=== PATIENT | male | born 1960 | race Caucasian/White ===

== ENCOUNTER 2021-07-08 07:41 | Outpatient (CLI) | payer MEDICARE, BC, SELFPAY ==
--- NOTE | 2021-07-08 18:43 | ONC CON_ITS ---
Dr. Hanks New Patient Note Patient: Jose Daniel Abad Unit #: [id number]: 1960 Dicatated By: Hawk Hanks M.D.Date of Visit: Jul 08, 2021 Onc MED New Patient/Consult Referring Physician: Dr. LESLIE MCDONALD M.D. Chief Complaint: Lymphocytosis. History of Present Illness: This is a 60-year-old man with lymphocytosis and suspected chronic lymphocytic leukemia. He has multiple medical illnesses including hypertension, hyperlipidemia, type 2 diabetes, and coronary artery disease. He has degenerative disease of the spine, he has had 3 back surgeries. 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 On his routine schedule laboratory studies in April 2021 he was noted to have a slightly elevated total bilirubin. His further laboratory evaluation on 06/17/2021 included a CBC which showed an elevated total white count of 16,300 with the differential showing 24% neutrophils, 66% lymphocytes, 5% monocytes, and 2% eosinophils. The absolute lymphocyte count was elevated at 10,872. His hemoglobin was normal at 16.3 g with hematocrit 46.7% and his platelet count was normal at 200,000. Similar findings were noted on a repeat CBC 3 days later. His blood smear reported lymphocytes with smudge cells and occasional atypical forms present, consistent with lymphoproliferative process. He complains that he feels tired all the time, that has been going on for least several years. He thinks it may have worsened somewhat in the past year. He has been able to continue his normal activities, though they are somewhat restricted. His ECOG score is 1. He has good appetite. He has had a recent weight loss of 7 to 10 pounds as result of dietary changes for his diabetes. He does not have fever or night sweats. He has chronic sinus drainage and he reports having dry mouth and throat. He has some shortness of breath with his asthma, but his breathing is generally okay. Recently he has had a little bit of cough. He says the cold air makes his chest hurt. He is scheduled to have a stress test in August. He has no GI complaints other than occasional heartburn. He has frequent urination. He has a lot of back pain, which is chronic. He has had gout in his right hand. He very seldom has headache. Occasionally has lightheadedness. He was having numbness in his right leg, but that has improved. He has no other focal neurologic symptoms. Recently has been getting treatment for an infected toenail, but that also is improving. Past Medical History: His medical history consists of asthma, coronary artery disease, degenerative disease of the spine, gout, history of Lyme disease, history of seminoma of the left testicle, hyperlipidemia, hypertension, nephrolithiasis, and type II diabetes. Past Surgical History: His surgical/procedural history includes cholecystectomy, lumbar spine surgery in 2019, coronary artery bypass in 2008, lumbar laminectomy/fusion in 2004, L4/5 discectomy in 2002, left orchiectomy in 2000, and lithotripsy in 1995. Medications: Albuterol Sulfate HFA 2 Puff(s) (of 108 (90 base) mcg/act) Aerosol, solution Inhalation q 6 hours PRN, Allopurinol 1 Tablet (of 300 mg) Oral daily, amLODIPine Besylate 1 Tablet (of 5 mg) Oral daily, Atorvastatin Calcium 1 Tablet (of 40 mg) Oral daily, Clopidogrel Bisulfate 1 Tablet (of 75 mg) Oral daily, hydroCHLOROthiazide 1 Tablet (of 12.5 mg) Oral daily, Insulin Aspart Prot & Aspart 35 Unit(s) (of (70-30) 100 Units/mL) Subcutaneous b.i.d., Losartan Potassium 1 Tablet (of 12.5 mg) Oral daily, metFORMIN HCl 2 Tablet (of 500 mg) Tablet SR 24 HR Oral b.i.d., Metoprolol Tartrate 1 Tablet (of 50 mg) Oral b.i.d., Nitroglycerin Tablet, sublingual Sublingual PRN, Potassium Chloride ER 1 Capsule (of 10 meq) Capsule, controlled release Oral daily Allergies: Adhesives, Bee Venom, Dulaglutide, HYDROcodone-Acetaminophen, Latex, Semaglutide, and Vicodin. Social History: Mr. Abad is . He is disabled. He is a non-smoker. He does not drink alcohol. 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 Family History: Father with pulmonary fibrosis at age 82. He also had heart disease. Mother is still living at age 87. She has diabetes. One brother has diabetes and 2 brothers have heart disease. His paternal grandfather had lung cancer and a nephew on his father's side had colon cancer. Review Of Symptoms: Constitutional - He complains that he is tired all the time, but that has been going on for least several years. He thinks it may have worsened somewhat during the past year. He has good appetite. He has had a 7 pound weight loss due to dietary changes for the diabetes. He does not have fever or night sweats, Eyes - He has had some decline in visual acuity, ENMT - He has hearing loss. No tinnitus. He always has sinus symptoms. He has dry mouth. He has not had sore throat or difficulty swallowing, Hematologic/Lymphatic - He does not have much bruising and he has no other bleeding, Respiratory - He has some shortness of breath with his asthma, but his breathing is okay. Recently he has had cough associated with a tickle in his throat. No pleuritic pain or hemoptysis, Cardiovascular - He has chest pain with exposure to cold air. He apparently has had a regular heart rate. He is scheduled to have a stress test in August, Gastrointestinal - No nausea or vomiting. He occasionally has heartburn. No diarrhea or constipation. No blood in the stool or black stools, Genitourinary (M) - No dysuria or hematuria. He has urinary frequency. No urgency or incontinence, Musculoskeletal - He says he has a lot of back pain. He has had gout in his right hand, Integumentary - He has a history of skin cancer, Neurologic - He very seldom has headache. He occasionally has dizziness. He was having numbness in his right leg, but that has improved. No other focal neurologic symptoms, Psychiatric - No anxiety or depression. He sometimes has difficulty sleeping. Vital Signs: Performed on Jul 08, 2021 15:40: 6, 0, 0.00, 0.00 sq.m, 96 %, 73 /min, 18 /min, 133/75 mm(hg), 98.0 F (LOW), and 207.6 lbs (HIGH). Physical Examination: Constitutional - He looks pretty good generally, Eyes - Sclerae nonicteric. Conjunctivae clear, ENMT - No lesions noted in the oral cavity, Neck - No mass or thyromegaly, Hematologic/Lymphatic - There are small cervical and clavicular nodes palpable bilaterally. There is no axillary adenopathy noted, Respiratory - Lungs are clear with good air movement bilaterally, Cardiovascular - Heart rhythm is regular. There is no murmur, gallop, or rub noted, Abdomen - Soft and non-tender. Liver and spleen are not enlarged. There is no abdominal mass or ascites noted and there is no inguinal adenopathy noted, Back/Spine - No spine or CVA tenderness noted, Extremities - No edema. Pedal pulses are palpable bilaterally, Integumentary - No rashes. No suspicious skin lesions noted, Neurologic - No focal neurologic deficits noted. Problem List: 1. Mild lymphocytosis consistent with chronic lymphocytic leukemia. By clinical evaluation, he appears to have early stage disease (Keyes stage I). 2. Hypertension. 3. Hyperlipidemia. 4. Type 2 diabetes. 5. Coronary artery disease. 6. Mild asthma. 7. Degenerative disease of the spine with chronic back pain. 8. Gout. 9. Nephrolithiasis. 10. History of Lyme disease. 11. History of seminoma of the left testicle with no recurrence following orchiectomy and adjuvant radiation. Problems Addressed with this Encounter and Plan: Patient with mild lymphocytosis consistent with chronic lymphocytic leukemia. He appears to have Keyes stage I disease, as he does have some associated cervical/clavicular adenopathy. The laboratory findings and clinical implications were reviewed with the patient and his . Given the CBC results and the findings on the blood smear, he almost certainly has chronic lymphocytic leukemia. He appears to have early stage disease, though there is some associated cervical/clavicular adenopathy. We discussed the fact that the leukemia is not curable, but it is treatable. It is generally managed with observation in earlier stages with the main indications for treatment being anemia or thrombocytopenia. Bulky/symptomatic lymphadenopathy can also be an indication for treatment. At this point he will be scheduled for whole blood flow cytometry to confirm the diagnosis. I am also going to go ahead and request a CLL prognostic profile. In addition, I am going to schedule him for staging CT scans of the chest, abdomen, and pelvis, mainly to make sure that he does not have jose hepatis lymphadenopathy contributing to the elevated bilirubin. However, as long as his disease is early-stage and not overtly symptomatic, he will be followed on expectant management. Signed By: Hawk Hanks M.D. <<Signature on File>>
== END 2021-07-08 07:42 | disposition home or self-care (01) ==
PROVIDERS: PCP Family Medicine; Visit Provider Internal Medicine Medical Oncology
DX: D72.820 Lymphocytosis (symptomatic) (principal); I10 Essential (primary) hypertension; E78.5 Hyperlipidemia, unspecified; E11.59 Type 2 diabetes mellitus with other circulatory complications; I25.10 Atherosclerotic heart disease of native coronary artery without angina pectoris; J45.20 Mild intermittent asthma, uncomplicated; G31.89 Other specified degenerative diseases of nervous system; M10.9 Gout, unspecified; N20.0 Calculus of kidney; Z86.19 Personal history of other infectious and parasitic diseases; Z85.47 Personal history of malignant neoplasm of testis; Z79.899 Other long term (current) drug therapy; Z92.3 Personal history of irradiation
CPT/HCPCS: 99205

== ENCOUNTER 2021-08-18 06:51 | Outpatient (CLI) | payer MEDICARE, BC, SELFPAY ==
--- NOTE | 2021-08-18 07:17 | ECG_ITS ---
[facility] Test Date: 2021-08-18 Pat Name: Jose Daniel Abad Department: Room: Gender: Male Software Applications Specialist: Candida Bailey : 1960 Requested By: Fanny Velarde Order Number: [id number] MD: Fanny Velarde M.D. Interpretive Statements NAME OF STUDY: EXERCISE SESTAMIBI STRESS TEST INDICATION: ashd, PROCEDURE: The baseline electrocardiogram showed incomplete right bundle branch block. Diffuse nonspecific ST-T changes. At the baseline, the patient's blood pressure was 134/99 mm Hg with a heart rate of 79. The patient exercised for 9 minutes on a 153 on a standard Damian protocol. Patient attained a maximum heart rate of 153 beats per minute(96% of the maximum predicted heart rate) with a blood pressure at the peak exercise of 196/89 mm Hg. The EKG at the peak exercise revealed some nonspecific ST changes. Patient did not have any chest pain or any significant arrhythmis with the exercise Sestamibi was injected 1 minute prior to the peak exercise During the recovery phase, there were no new changes. Blood pressure at the end of the recovery phase was 166/96 mm Hg with a heart rate of 96 per minute. CONCLUSION: 1. Nonspecific EKG changes with the [treadmill exercise 2. No exercise-induced chest pain or cardiac arrhythmia 3. Good exercise tolerance, attained a maximum of 10.2 METs 4. Sestamibi/Sestamibi perfusion results pending; see separate report. Electronically Signed On 08-18-2021 19:08:33 CLIPPER MACHINE by Fanny Velarde M.D. [id number]
[2021-08-18 07:18] VITALS: BMI 29.2
--- NOTE | 2021-08-18 07:18 | NMCV_ITS ---
NM glenn perf SPECT r/s* [id number] Jose Daniel Abad Age: 61 Gender: M : 1960 Exam Date: 08/18/2021 08:06 Ordering Phys: Fanny Velarde MD ([email or web address]) Technologist: ZEE Myers Exam Location: [facility] Indications: SHORTNESS OF BREATH STRESS TEST Please see separate stress test report in [facility] for full findings IMAGE PROTOCOL Rest/Stress 1 Exercise Day Radiopharmaceutical Dose (mCi) Administration Site Administered by Rest: Tc-99m 10.9 IV ZEE Traylor Sestamibi Stress:Tc-99m 32.6 IV ZEE Traylor Sestamibi Rest: 18-Aug-2021 60 Discovery 630 Stress: 18-Aug-2021 15 Discovery 630 Radiopharmaceutical was injected at 94 % maximum heart rate. Images obtained in supine and prone position. SPECT RESULTS Technical Quality: Excellent Raw Data Analysis: Normal Image Corrections: No attenuation or motion correction applied Summed Stress Score: 0 Summed Rest Score: 3 Summed Difference Score: 0 PERFUSION FINDINGS Patchy areas of decreased tracer uptake was noted in the anterior wall and inferior wall regions. No significant reversibility was noted in these regions. FUNCTIONAL RESULTS (calculated via Gated SPECT) Stress Image LV EF (%): 73 Stress EDV (mL):74 TID: 0.69 Stress ESV (mL):20 FUNCTIONAL FINDINGS: Segmental wall motion analysis revealing no gross wall motion abnormalities. IMPRESSIONS 1. Myocardial perfusion imaging revealing patchy areas of persistent decreased tracer uptake in the anterior wall and inferior wall regions, most likely are present attenuation artifacts. 2. Normal LV ejection fraction of 73%. 3. LV wall motion analysis revealing no gross wall motion normalities. 4. Normal LV volume. No significant coronary ischemia, based on the above findings Dr Fanny Velarde MD [facility] (Electronically Signed) Final Date: 18 August 2021 13:31 S
[2021-08-18 09:00] VITALS: BP 166/98; PULSE 96
== END 2021-08-18 06:52 | disposition home or self-care (01) ==
LOC: RAD 06:54 → CDL 07:17
PROVIDERS: PCP Family Medicine; Visit Provider Internal Medicine Cardiovascular Disease
DX: I25.10 Atherosclerotic heart disease of native coronary artery without angina pectoris (principal); R06.02 Shortness of breath
CPT/HCPCS: 78452; 93017; A9500

== ENCOUNTER 2021-10-20 13:39 | Outpatient (CLI) | payer MEDICARE, BC, SELFPAY ==
[2021-10-20 14:15] LABS: Basophils # 0.1 10^3/uL (0.0-0.1); Basophils % 0.5 %; Eosinophils # 0.4 10^3/uL (0.0-0.8); Eosinophils % 1.9 %; Hematocrit 46.3 % (42.0-52.0); Lymphocytes # 11.5 10^3/uL (0.8-4.8); Lymphocytes % 59.3 %; Mean Corpuscular HGB Conc 34.6 g/dL (30.0-36.0); Mean Corpuscular Hemoglobin 30.5 pg (28.0-34.0); Mean Corpuscular Volume 88.4 fl (80-94); Mean Platelet Volume 11.5 fL (7.4-10.4); Monocytes % 15.4 %; Neutrophils # 4.37 10^3/uL (1.8-7.7); Neutrophils % 22.6 %; Nucleated Red Blood Cells % 0.2 %; Platelet Count 174 10^3/cmm (130-400); Red Blood Count 5.24 10^6/uL (4.1-5.3); Red Cell Distribution Width 13.5 % (12.1-15.1); White Blood Count 19.3 10^3/uL (4.0-10.0)
[2021-10-20 14:32] LABS: Alanine Aminotransferase 27 U/L (0-41); Albumin Level 4.5 g/dL (3.5-5.2); Alkaline Phosphatase 107 IU/L (40-130); Aspartate Amino Transferase 29 U/L (0-40); Blood Urea Nitrogen 14 mg/dL (8-23); Calcium 9.6 mg/dL (8.5-10.5); Carbon Dioxide 24 mmol/L (22-29); Chloride 104 mmol/L (98-107); Globulin 2.8 g/dL (1.3-4.6); Glomerular Filtration Rate 136.5 mL/min (90-130); Glucose 150 mg/dL (65-115); Osmolality Calculated 293 mOsm/kg (285-295); Sodium 140 mmol/L (136-145); Total Bilirubin 1.4 mg/dL (0.15-1.2); Total Protein 7.3 g/dL (6.6-8.7)
[2021-10-20 14:37] LABS: Anion Gap 15.9 (5-19); Lactate Dehydrogenase 136 U/L (135-225); Potassium 3.9 mmol/L (3.5-5.1)
== END 2021-10-20 13:40 | disposition home or self-care (01) ==
PROVIDERS: PCP Family Medicine; Visit Provider Internal Medicine Medical Oncology
DX: C91.90 Lymphoid leukemia, unspecified not having achieved remission (principal); I10 Essential (primary) hypertension; E78.5 Hyperlipidemia, unspecified; E11.9 Type 2 diabetes mellitus without complications; I25.10 Atherosclerotic heart disease of native coronary artery without angina pectoris; J45.909 Unspecified asthma, uncomplicated; M10.9 Gout, unspecified; Z79.899 Other long term (current) drug therapy
CPT/HCPCS: 36415; 80053; 83615; 85025

== ENCOUNTER 2021-10-22 13:20 | Outpatient (CLI) | payer MEDICARE, BC, SELFPAY ==
--- NOTE | 2021-10-26 11:53 | ONC FU_ITS ---
Dr. Hanks Patient Follow-Up Note Patient: Jose Daniel Abad Unit #: [id number]: 1960 Dicatated By: Hawk Hanks M.D.Date of Visit:Oct 22, 2021 Onc Med Follow-up/Prog Note Chief Complaint: Chronic lymphocytic leukemia. History of Present Illness: This is a 60-year-old man with chronic lymphocytic leukemia, Keyes stage I. He has a history of seminoma of the left testicle for which he underwent orchiectomy and adjuvant radiation in 2000. On his routine schedule laboratory studies in April 2021 he was noted to have a slightly elevated total bilirubin. His further laboratory evaluation on 06/17/2021 included a CBC which showed an elevated total white count of 16,300 with the differential showing 24% neutrophils, 66% lymphocytes, 5% monocytes, and 2% eosinophils. The absolute lymphocyte count was elevated at 10,872. His hemoglobin was normal at 16.3 g with hematocrit 46.7% and his platelet count was normal at 200,000. Similar findings were noted on a repeat CBC 3 days later. His blood smear reported lymphocytes with smudge cells and occasional atypical forms present, consistent with lymphoproliferative process. I had seen him initially on 07/08/2021. His staging CT scans on 07/18/2021 showed lymphadenopathy involving the chest, abdomen, and pelvis, with the largest nodes measuring up to 1.4 cm. His laboratory studies from 07/19/2021 included CBC showing hemoglobin 16.3 g, white blood cell count 18,100, and platelet count 194,000. His LDH was normal at 78 U/L. His whole blood flow cytometry showed an abnormal cell population comprising of CD45 positive leukocytes with coexpression of CD5 and CD23, consistent with chronic lymphocytic leukemia/small lymphocytic lymphoma. His CLL prognostic profile by FISH was unrevealing. It was specifically reported to be negative for IGH (14q32) and IGH/CCND1 [ t(11;14) ] gene rearrangement, negative for deletions of chromosomes 6q and 13q, negative for trisomy 12 and for deletion 11q, and negative for deletion 17p. In the setting of early stage, asymptomatic disease with no adverse prognostic indicators, expectant management was recommended. His other medical illnesses include asthma, hypertension, hyperlipidemia, type 2 diabetes, and coronary artery disease. He underwent coronary artery bypass in 2008. He has degenerative disease of the spine, he has had 3 back surgeries. He has a history of Lyme disease and history of nephrolithiasis. He is a non-smoker. He is seen for a follow-up visit. He complains that he feels tired. He has not been as active, but some of that is just attributable to winter weather. He says the cold air hurts his lungs. He is able to do light work. ECOG score is 1. His appetite is good. He has gained weight. He has not had fever. He occasionally has sweating. He has chronic sinus symptoms, and he tends to sneeze a lot. He has dry mouth. He does not complain of cough. He has shortness of breath with activity. He occasionally has chest pain, but he thinks that may be associated with his esophagus. He does have heartburn, which comes and goes. He has no other GI complaints. Bladder function is pretty good, though he does have nocturia 2 or 3 times. He has chronic back pain. Recently has had some headaches and he sometimes has dizziness. He has no numbness/paresthesia or other focal neurologic symptoms. Medications: Albuterol Sulfate HFA 2 Puff(s) (of 108 (90 base) mcg/act) Aerosol, solution Inhalation q 6 hours PRN, Allopurinol 1 Tablet (of 300 mg) Oral daily, amLODIPine Besylate 1 Tablet (of 5 mg) Oral daily, Atorvastatin Calcium 1 Tablet (of 40 mg) Oral daily, Clopidogrel Bisulfate 1 Tablet (of 75 mg) Oral daily, hydroCHLOROthiazide 1 Tablet (of 12.5 mg) Oral daily, Insulin Aspart Prot & Aspart 75 Unit(s) (of (70-30) 100 Units/mL) Subcutaneous b.i.d., Losartan Potassium 1 Tablet (of 12.5 mg) Oral daily, metFORMIN HCl 2 Tablet (of 500 mg) Tablet SR 24 HR Oral b.i.d., Metoprolol Tartrate 1 Tablet (of 50 mg) Oral b.i.d., Nitroglycerin Tablet, sublingual Sublingual PRN, Potassium Chloride ER 1 Capsule (of 10 meq) Capsule, controlled release Oral daily Allergies: Adhesives, Bee Venom, Dulaglutide, HYDROcodone-Acetaminophen, Latex, Semaglutide, and Vicodin. Vital Signs: Performed on Oct 22, 2021 15:41 BP - 161/91 mm(hg) (HIGH) Performed on Oct 22, 2021 15:41 Weight - 218.8 lbs (HIGH) BSA - sq.m BMI - 0.00 (LOW) Temperature - 97.6 F (LOW) Pulse - 68 /min Respiration - 16 /min BP - 178/83 mm(hg) (HIGH) O2 Sat - 97 % Pain - 0 Fatigue - 6 Physical Examination: Constitutional - He looks pretty good generally, Eyes - Sclerae nonicteric. Conjunctivae clear, ENMT - No lesions noted in the oral cavity, Hematologic/Lymphatic - There are small cervical and clavicular nodes palpable bilaterally, more prominent on the right. There is no axillary adenopathy noted, Respiratory - Lungs are clear with good air movement bilaterally, Cardiovascular - Heart rhythm is regular. There is no murmur, gallop, or rub noted, Abdomen - Soft. Liver and spleen are not enlarged. There is no abdominal mass or ascites noted and there is no inguinal adenopathy noted, Extremities - No edema, Neurologic - No focal neurologic deficits noted. Lab/Imaging: Test performed on Oct 20, 2021 14:02 LDH (Total) 136 U/L Sodium 140 mmol/L Potassium 3.9 mmol/L Chloride 104 mmol/L CO2 24 mmol/L Anion Gap 15.9 BUN 14 mg/dL Creatinine 0.6 mg/dL eGFR 136.5 mL/min Glucose 150 mg/dL Osmolality - Calculated 293 mOsm/kg Calcium 9.6 mg/dL Protein, Total 7.3 g/dL Albumin 4.5 g/dL Globulin 2.8 g/dL Bilirubin, Total 1.4 mg/dL ALT (SGPT) 27 U/L AST (SGOT) 29 U/L Alkaline Phosphatase 107 IU/L WBC 19.3 10 3/uL RBC 5.24 10 6/uL HGB 16.0 g/dL HCT 46.3 % MCV 88.4 fl MCH 30.5 pg MCHC 34.6 g/dL RDW 13.5 % Platelet Count 174 10 3/cmm MPV 11.5 fL Neutrophils 4.37 10 3/uL Lymphocytes 11.5 10 3/uL Monocytes 3.0 10 3/uL Eosinophils 0.4 10 3/uL Basophils 0.1 10 3/uL Neutrophil % 22.6 % Lymphocyte % 59.3 % Monocyte % 15.4 % Eosinophil % 1.9 % Basophils % 0.5 % NRBC % 0.2 % Problem List: 1. Chronic lymphocytic leukemia, Keyes stage I. 2. Hypertension. 3. Hyperlipidemia. 4. Type 2 diabetes. 5. Coronary artery disease. 6. Mild asthma. 7. Degenerative disease of the spine with chronic back pain. 8. Gout. 9. Nephrolithiasis. 10. History of Lyme disease. 11. History of seminoma of the left testicle with no recurrence following orchiectomy and adjuvant radiation. Problems Addressed with this Encounter and Plan: Patient with chronic lymphocytic leukemia, Keyes stage I. His CLL prognostic profile by FISH was unrevealing. In the setting of early stage disease with no adverse prognostic factors, expectant management was recommended. During follow-up he has continued to complain of significant fatigue, but that is most likely related to underlying medical illnesses. If it continues to worsen, I would consider the possibility that it is related to the chronic lymphocytic leukemia. There would otherwise be no indication for treatment. As such, for now he will continue on expectant management. I will see him again in 6 months. Signed By: Hawk Hanks M.D. <<Signature on File>>
== END 2021-10-22 13:21 | disposition home or self-care (01) ==
LOC: ONCMED 13:22
PROVIDERS: PCP Family Medicine; Visit Provider Internal Medicine Medical Oncology
DX: C91.10 Chronic lymphocytic leukemia of B-cell type not having achieved remission (principal); I10 Essential (primary) hypertension; E78.5 Hyperlipidemia, unspecified; E11.9 Type 2 diabetes mellitus without complications; I25.10 Atherosclerotic heart disease of native coronary artery without angina pectoris; J45.909 Unspecified asthma, uncomplicated; Z79.899 Other long term (current) drug therapy
CPT/HCPCS: 99214

== ENCOUNTER → 2021-11-25 12:16 | Outpatient (BNVA) | payer MEDICARE, BC, SELFPAY | PROVIDERS: PCP Family Medicine; Visit Provider Internal Medicine Cardiovascular Disease | DX: I25.10 Atherosclerotic heart disease of native coronary artery without angina pectoris (principal); I10 Essential (primary) hypertension; E78.2 Mixed hyperlipidemia; E11.9 Type 2 diabetes mellitus without complications; Z79.4 Long term (current) use of insulin | CPT/HCPCS: 99213; 99214 ==

== ENCOUNTER → 2022-07-14 13:05 | Outpatient (BNVA) | payer MEDICARE, BC, SELFPAY | PROVIDERS: PCP Family Medicine; Visit Provider Internal Medicine Cardiovascular Disease | DX: I25.10 Atherosclerotic heart disease of native coronary artery without angina pectoris (principal); Z95.1 Presence of aortocoronary bypass graft; I25.2 Old myocardial infarction; I10 Essential (primary) hypertension; E78.2 Mixed hyperlipidemia; C91.10 Chronic lymphocytic leukemia of B-cell type not having achieved remission; E11.9 Type 2 diabetes mellitus without complications; Z79.4 Long term (current) use of insulin | CPT/HCPCS: 99213 ==

== ENCOUNTER → 2023-02-03 11:59 | Outpatient (BNVA) | payer MEDICARE, BC, SELFPAY | PROVIDERS: PCP Family Medicine; Visit Provider Internal Medicine Cardiovascular Disease | DX: I25.10 Atherosclerotic heart disease of native coronary artery without angina pectoris (principal); Z95.1 Presence of aortocoronary bypass graft; C91.10 Chronic lymphocytic leukemia of B-cell type not having achieved remission; I10 Essential (primary) hypertension; E78.2 Mixed hyperlipidemia; E11.9 Type 2 diabetes mellitus without complications; Z79.4 Long term (current) use of insulin; I25.2 Old myocardial infarction | CPT/HCPCS: 99213 ==

== ENCOUNTER → 2023-08-25 11:41 | Outpatient (BNVA) | payer MEDICARE, BC, SELFPAY | PROVIDERS: PCP Family Medicine; Visit Provider Internal Medicine Cardiovascular Disease | DX: I25.10 Atherosclerotic heart disease of native coronary artery without angina pectoris (principal); Z95.1 Presence of aortocoronary bypass graft; E78.2 Mixed hyperlipidemia; I10 Essential (primary) hypertension; E11.9 Type 2 diabetes mellitus without complications; C91.10 Chronic lymphocytic leukemia of B-cell type not having achieved remission; Z79.4 Long term (current) use of insulin | CPT/HCPCS: 99213 ==

== ENCOUNTER → 2023-10-18 09:11 | Outpatient (BNVA) | payer MEDICARE, BC, SELFPAY | PROVIDERS: PCP Family Medicine; Visit Provider Internal Medicine | DX: E11.9 Type 2 diabetes mellitus without complications (principal); E78.2 Mixed hyperlipidemia; I25.10 Atherosclerotic heart disease of native coronary artery without angina pectoris | CPT/HCPCS: 99204 ==

== ENCOUNTER → 2023-12-10 10:39 | Outpatient (BNVA) | payer MEDICARE, BC, SELFPAY | PROVIDERS: PCP Family Medicine; Visit Provider Internal Medicine | DX: E11.9 Type 2 diabetes mellitus without complications (principal); E78.2 Mixed hyperlipidemia; I25.10 Atherosclerotic heart disease of native coronary artery without angina pectoris; Z79.4 Long term (current) use of insulin; Z79.84 Long term (current) use of oral hypoglycemic drugs | CPT/HCPCS: 99214 ==

== ENCOUNTER 2024-02-29 14:18 | Outpatient (CLI) | payer MEDICARE, BC, SELFPAY ==
[2024-02-29 15:03] LABS: Estmated Average Glucose 171; Hemoglobin A1C 7.6 % (4.0-6.0)
[2024-02-29 15:04] LABS: Alanine Aminotransferase 23 U/L (0-41); Albumin Level 4.5 g/dL (3.5-5.2); Alkaline Phosphatase 104 U/L (40-130); Anion Gap 15.6 (5-19); Aspartate Amino Transferase 22 U/L (0-40); Blood Urea Nitrogen 17 mg/dL (8-23); Calcium 8.8 mg/dL (8.5-10.5); Carbon Dioxide 23 mmol/L (22-29); Chloride 107 mmol/L (98-107); Chol HDL Ratio 2.44 mg/dL (1.0-5.00); Cholesterol 78 mg/dL (0-200); Globulin 2.8 g/dL (1.3-4.6); Glucose 181 mg/dL (65-115); HDL Cholesterol 32 mg/dL (60-100); LDL Cholesterol Calculated 21 mg/dL (50-129); LDL HDL Ratio 0.66 RATIO (0.00-3.22); Osmolality Calculated 300 mOsm/kg (285-295); Potassium 3.6 mmol/L (3.5-5.1); Sodium 142 mmol/L (136-145); Total Bilirubin 1.9 mg/dL (0.15-1.2); Total Protein 7.3 g/dL (6.6-8.7); Triglycerides 123 mg/dL (0-150)
[2024-02-29 15:07] LABS: Creatinine Urine, Random 63 mg/dL (39-259); Microalbum Creatinine Ratio Ur 16 mg/dL (0-20); Microalbumin Random Urine 1 ug/dL (0-20)
== END 2024-02-29 14:19 | disposition home or self-care (01) ==
LOC: LAB 14:19
PROVIDERS: PCP Family Medicine; Visit Provider Internal Medicine
DX: E11.9 Type 2 diabetes mellitus without complications (principal); E78.2 Mixed hyperlipidemia
CPT/HCPCS: 36415; 80053; 80061; 82044; 83036

== ENCOUNTER → 2024-03-08 11:10 | Outpatient (BNVA) | payer MEDICARE, BC, SELFPAY | PROVIDERS: PCP Family Medicine; Visit Provider Internal Medicine | DX: E11.9 Type 2 diabetes mellitus without complications (principal); E78.2 Mixed hyperlipidemia; I25.10 Atherosclerotic heart disease of native coronary artery without angina pectoris; Z79.4 Long term (current) use of insulin; Z79.84 Long term (current) use of oral hypoglycemic drugs | CPT/HCPCS: 99214 ==

== ENCOUNTER 2024-07-03 09:27 | Outpatient (CLI) | payer MEDICARE, BC, SELFPAY ==
[2024-07-03 10:09] LABS: Alanine Aminotransferase 23 U/L (0-41); Albumin Level 4.4 g/dL (3.5-5.2); Alkaline Phosphatase 118 U/L (40-130); Anion Gap 10.9 (5-19); Aspartate Amino Transferase 21 U/L (0-40); Blood Urea Nitrogen 16 mg/dL (8-23); Calcium 9.5 mg/dL (8.5-10.5); Carbon Dioxide 30 mmol/L (22-29); Chloride 104 mmol/L (98-107); Chol HDL Ratio 2.43 mg/dL (1.0-5.00); Cholesterol 85 mg/dL (0-200); Glomerular Filtration Rate 97.3 mL/min (90-130); Glucose 179 mg/dL (65-115); HDL Cholesterol 35 mg/dL (60-100); LDL Cholesterol Calculated 30 mg/dL (50-129); LDL HDL Ratio 0.86 RATIO (0.00-3.22); Osmolality Calculated 298 mOsm/kg (285-295); Potassium 3.9 mmol/L (3.5-5.1); Sodium 141 mmol/L (136-145); Total Bilirubin 1.5 mg/dL (0.15-1.2); Total Protein 7.4 g/dL (6.6-8.7); Triglycerides 99 mg/dL (0-150)
[2024-07-03 10:29] LABS: Estmated Average Glucose 189; Hemoglobin A1C 8.2 % (4.0-6.0)
[2024-07-03 10:30] LABS: Creatinine Urine, Random 37 mg/dL (39-259); Microalbum Creatinine Ratio Ur 27 mg/dL (0-20); Microalbumin Random Urine 1 ug/dL (0-20)
== END 2024-07-03 09:28 | disposition home or self-care (01) ==
LOC: LAB 09:28
PROVIDERS: PCP Registered Nurse; Visit Provider Internal Medicine
DX: E11.9 Type 2 diabetes mellitus without complications (principal); E78.2 Mixed hyperlipidemia
CPT/HCPCS: 36415; 80053; 80061; 82044; 83036

== ENCOUNTER 2024-07-06 08:52 | Outpatient (CLI) | payer MEDICARE, BC, SELFPAY ==
--- NOTE | 2024-07-06 08:45 | MR_ITS ---
WS: [id number] MRI LUMBAR SPINE NONCONTRAST HISTORY: M48.061 - Spinal stenosis, lumbar region without neurogen..., RIGHT lower extremity pain. COMPARISON: None available. TECHNIQUE: Sagittal and axial multisequence imaging is submitted. Posterior lumbar fusion at L4-5 with interbody spacer. Interbody spacer is maintaining the disc space . No acute fractures. There is small amount of marrow edema along the superior endplate of L2. Normal lumbar alignment with no compression fractures or marrow edema. Mild disc desiccation and narrowing at L1-2. Conus terminates normally at L1-2 disc level. L1-L2: Moderate to large central disc protrusion is asymmetric to the RIGHT. There is deformity and f lattening of the thecal sac and encroachment upon the subarticular recesses, RIGHT greater than LEFT. Mild osteophytic ridging contributing to the central and subarticular recess stenosis. Additional RI GHT foraminal disc protrusion. Combination of findings resulting in moderate central, bilateral subar ticular recess and RIGHT foraminal stenosis. Mild LEFT foraminal stenosis. L2-L3: Diffuse annular disc bulging with ligamentum flavum and facet arthritis. Mild encroachment upo n the ventral thecal sac. Very mild subarticular recess narrowing. L3-L4: Diffuse marked annular disc bulging with a central disc protrusion. Marked ligamentum flavum h ypertrophy and facet arthritis. Fluid in the facet joints. Severe central and bilateral subarticular recess stenosis with moderate foraminal stenosis. Most significant disc contact on the traversing L4 nerve roots. L4-L5: No central stenosis. No disc protrusions. Moderate LEFT foraminal stenosis due to disc disease and osteophytes. L5-S1: Mild disc bulging. Ligamentum flavum and facet arthritis. Mild disc encroachment upon the RIGH T S1 nerve root. Mild bilateral foraminal stenosis. RIGHT parapelvic cysts. No renal obstruction. MR/MR lumbar spine wo con* [id number] IMPRESSION: 1. Posterior lumbar fusion at L4-5 with interbody spacer. 2. L1-2: Moderate to large central disc protrusion asymmetric to the RIGHT. Mo derate central, bilateral subarticular recess and RIGHT foraminal stenosis. Mos t significant disc contact on the traversing RIGHT L2 nerve root. 3. L3-4: Severe central, bilateral subarticular recess and moderate foraminal stenosis. Most significant disc contact on the traversing L4 nerve roots. 4. L4-5: Moderate LEFT foraminal stenosis predominantly due to osteophyte dise ase. 5. L5-S1: Mild bilateral foraminal stenosis with mild disc encroachment on the RIGHT S1 nerve root. 6. L2-3: Minimal subarticular recess stenosis.
== END 2024-07-06 08:53 | disposition home or self-care (01) ==
PROVIDERS: PCP Registered Nurse; Visit Provider Registered Nurse
DX: M48.061 Spinal stenosis, lumbar region without neurogenic claudication (principal); M43.26 Fusion of spine, lumbar region; M51.26 Other intervertebral disc displacement, lumbar region; M99.63 Osseous and subluxation stenosis of intervertebral foramina of lumbar region; M25.78 Osteophyte, vertebrae; Z98.890 Other specified postprocedural states
CPT/HCPCS: 72148

== ENCOUNTER → 2024-07-07 09:51 | Outpatient (BNVA) | payer MEDICARE, BC, SELFPAY | PROVIDERS: PCP Registered Nurse; Visit Provider Internal Medicine | DX: E11.9 Type 2 diabetes mellitus without complications (principal); Z86.39 Personal history of other endocrine, nutritional and metabolic disease; E78.2 Mixed hyperlipidemia; I25.10 Atherosclerotic heart disease of native coronary artery without angina pectoris; Z79.4 Long term (current) use of insulin; Z79.84 Long term (current) use of oral hypoglycemic drugs | CPT/HCPCS: 99214 ==

== ENCOUNTER → 2024-07-18 14:33 | Outpatient (BNVA) | payer MEDICARE, BC, SELFPAY | PROVIDERS: PCP Registered Nurse; Visit Provider Orthopaedic Surgery | DX: Z01.818 Encounter for other preprocedural examination (principal); M48.061 Spinal stenosis, lumbar region without neurogenic claudication; M54.41 Lumbago with sciatica, right side; M54.42 Lumbago with sciatica, left side; G89.29 Other chronic pain; Z98.890 Other specified postprocedural states | CPT/HCPCS: 36415; 72110; 80053; 81001; 85025; 99204 ==

== ENCOUNTER 2024-08-18 08:35 | Outpatient (CLI) | payer MEDICARE, BC, SELFPAY ==
[2024-08-18 09:06] LABS: Estmated Average Glucose 166; Hemoglobin A1C 7.4 % (4.0-6.0)
[2024-08-18 09:11] LABS: Alanine Aminotransferase 25 U/L (0-41); Albumin Level 4.5 g/dL (3.5-5.2); Alkaline Phosphatase 90 U/L (40-130); Anion Gap 18.8 (5-19); Aspartate Amino Transferase 25 U/L (0-40); Blood Urea Nitrogen 18 mg/dL (8-23); Calcium 9.1 mg/dL (8.5-10.5); Carbon Dioxide 22 mmol/L (22-29); Chloride 102 mmol/L (98-107); Globulin 2.9 g/dL (1.3-4.6); Glucose 157 mg/dL (65-115); Osmolality Calculated 293 mOsm/kg (285-295); Potassium 3.8 mmol/L (3.5-5.1); Sodium 139 mmol/L (136-145); Total Bilirubin 2.2 mg/dL (0.15-1.2); Total Protein 7.4 g/dL (6.6-8.7)
== END 2024-08-18 08:36 | disposition home or self-care (01) ==
LOC: LAB 08:38
PROVIDERS: Absent Provider Orthopaedic Surgery; PCP Registered Nurse; Visit Provider Internal Medicine
DX: Z86.39 Personal history of other endocrine, nutritional and metabolic disease (principal); E78.2 Mixed hyperlipidemia; E11.9 Type 2 diabetes mellitus without complications
CPT/HCPCS: 36415; 80053; 80061; 82043; 83036; 84681; 86337; 86341; 93005

== ENCOUNTER 2024-08-21 08:27 | Emergency (ER) | payer MEDICARE, BC, SELFPAY ==
[2024-08-21 08:32] VITALS: BP 166/93; PULSE 75; RESP 18; TEMP 37; O2SAT 96
--- NOTE | 2024-08-21 08:32 | ECG_ITS ---
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: : 1960 Requested By: Mekhi Guillen Order Number: [id number] Reading MD: TIFF STEPHENS Measurements Intervals [place] Rate: 75 P: 64 OK: 198 QRS: 43 QRSD: 106 T: 118 QT: 382 QTc: 427 Interpretive Statements SINUS RHYTHM ST DEVIATION AND MODERATE T-WAVE ABNORMALITY, CONSIDER LATERAL ISCHEMIA [-0.1+ mV T-WAVE IN I/aVL/V5/V6] Compared to ECG 08/18/2024 09:34:56 Incomplete right bundle-branch block no longer present T-wave abnormality still present Possible ischemia still present Electronically Signed On 08-21-2024 23:12:06 CLINICAL RESEARCH MANAGER by TIFF STEPHENS [id number]
--- NOTE | 2024-08-21 08:46 | XRR_ITS ---
PROCEDURE INFORMATION: Exam: XR Chest Exam date and time: 08/21/2024 9:02 AM Age: 64 years old Clinical indication: Angina pectoris; Prior surgery; Surgery date: 6+ months; Surgery type: Open heart/lumbar fusion/disectomy; Patient HX: PT reports intermittent chest pains for several weeks. PT also C/O SOB. HX of leukemia; Additional info: Dyspnea/cough TECHNIQUE: Imaging protocol: Radiologic exam of the chest. Views: 1 view. COMPARISON: No relevant prior studies available. FINDINGS: Tubes, catheters and devices: Surgical clips overlie the mediastinum. Lungs: Linear density identified within left lower lung. Possible atelectasis or scarring. The lungs appear otherwise clear. Pleural spaces: No pleural effusion. No pneumothorax. Heart/Mediastinum: Cardiac silhouette appears mildly enlarged. Questionable coronary artery calcifications identified. Vasculature: Mild atherosclerotic calcification demonstrated within the aorta. Bones/joints: Sternotomy wires, hardware is demonstrated. XR/XR chest 1V portable [id number] IMPRESSION: 1. Mild enlarged cardiac silhouette. 2. Linear left lower chest pulmonary atelectasis or scarring. 3. Degenerative and postsurgical changes are demonstrated, as described above.
--- NOTE | 2024-08-21 08:52 | ED_ITS ---
HPI - Chest Pain 2 General: Chief Complaint: Chest Pain Stated Complaint: chest pain, sob Time Seen by Provider: 08/21/24 08:40 History of Present Illness: 64[facility] for the last several weeks some shortness of breath as well. He has a known history of coronary disease also has a history of B-cell lymphoma in addition to this he is diabetic and has a history of hypertension he does take clopidogrel. He had stents placed and August 2021 he had a stress test after that that was reportedly normal not had any further evaluation since. For his lymphoma he is currently on oral medications. He denies any recent fever sweats or chills. He repeatedly states as long as today is calm he does not have any chest pain cannot really exacerbate the pain by palpation only minimally by deep inspiration. He states he is aggravated this morning because he only sees his oncologist via telehealth and that worsened his chest discomfort. States that he does not have a productive cough any fever sweats chills myalgias headache or diarrhea. Associated symptoms: Deny abdominal pain, dyspnea or fever(s) Related Data Home Medications Medication Instructions Recorded Confirmed albuterol sulfate 90 mcg/actuation 2 puff inhalation Q6H PRN 03/10/21 08/21/24 aerosol inhaler Shortness Of Breath allopurinol 300 mg tablet 300 mg PO DAILY 03/10/21 08/21/24 cholecalciferol (vitamin D3) 325 325 mcg PO DAILY 11/25/21 08/21/24 mcg (13,000 unit) capsule apple cider vinegar 300 mg tablet 300 mg PO DAILY 06/08/24 08/21/24 ibrutinib 280 mg tablet (Imbruvica) 280 mg PO DAILY 06/08/24 08/21/24 mecobalamin (vitamin B12) 2,500 2,500 mcg PO DAILY 06/08/24 08/21/24 mcg chewable tablet magnesium 200 mg tablet 200 mg PO DAILY 07/04/24 08/21/24 cinnamon bark 500 mg capsule 500 mg PO DAILY 08/21/24 08/21/24 empagliflozin 25 mg tablet 25 mg PO DAILY 08/21/24 08/21/24 (Jardiance) insulin aspart U-100 100 unit/mL 40 unit SUBCUT TID 08/21/24 08/21/24 (3 mL) subcutaneous pen (Novolog FlexPen U-100 Insulin aspart) insulin glargine 100 unit/mL (3 80 unit SUBCUT DAILY 08/21/24 08/21/24 mL) subcutaneous pen (Lantus Solostar U-100 Insulin) tramadol 50 mg tablet 50 mg PO BID pain 08/21/24 08/21/24 Previous Rx's Medication Instructions Recorded potassium chloride 10 mEq 10 meq PO DAILY #90 tabs 03/12/21 tablet,extended release aspirin 81 mg tablet,delayed 81 mg PO DAILY #90 tabs 06/30/22 release (Adult Aspirin Regimen) losartan 25 mg tablet 25 mg PO DAILY #90 tabs 04/20/23 amlodipine 10 mg tablet 10 mg PO DAILY #90 tabs 06/08/23 nitroglycerin 0.4 mg sublingual 0.4 mg sublingual Q5M PRN chest 08/25/23 tablet (Nitrostat) pain #25 tabs pen needle, diabetic 32 gauge x #100 ea 01/18/2412/15 (Comfort EZ Pen Sesser) clopidogrel 75 mg tablet (Plavix) 75 mg PO DAILY #90 tabs 02/22/24 atorvastatin 40 mg tablet 40 mg PO DAILY #90 tabs 05/19/24 betamethasone valerate 0.1 % 1 applic topical DAILY PRN itching 07/24/24 topical ointment 10 days #45 grams hydrochlorothiazide 12.5 mg tablet 12.5 mg PO DAILY #90 tabs 08/10/24 metoprolol tartrate 25 mg tablet 25 mg PO BID #60 tabs 08/21/24 Allergies Allergy/AdvReac Type Severity Reaction Status Date / Time acetaminophen [From Vicodin] Allergy Unknown Verified 08/18/24 09:47 adhesive Allergy rash Verified 08/18/24 09:47 adhesive tape Allergy rash Verified 08/18/24 09:47 dulaglutide Allergy N/V Verified 08/18/24 09:47 hydrocodone Allergy itching Verified 08/18/24 09:47 latex Allergy rash Verified 08/18/24 09:47 semaglutide Allergy N/V Verified 08/18/24 09:47 bee venom Allergy swelling Uncoded 08/18/24 09:47 of face Review of Systems 2 Const: Denies: fever(s) or chills Card: Reports: chest pain Resp: Denies: dyspnea GI: Denies: abdominal pain : Denies: dysuria, urinary frequency or urinary urgency Musc: Denies: neck pain or back pain Skin/Breast: Denies: rash PFSH ED 2 PFSH: Medical History CAD (coronary artery disease) Chronic lymphocytic leukemia (CLL), B-cell Atherosclerosis Hx of angina pectoris Asthma Testicular cancer Hx of type 2 diabetes mellitus Hyperlipidemia Hypertension Lyme disease Renal stones History of skin cancer Myocardial infarction Surgical History History of lumbar surgery Hx of spinal fusion History of back surgery Hx of cholecystectomy Hx of coronary artery bypass graft Family History Father CAD (coronary artery disease) Lung disease Brother CAD (coronary artery disease) Cancer Dementia Diabetes Lung disease Grandfather Cancer Stroke Family/Other Cancer Chronic kidney disease (CKD) Diabetes Lung disease Grandmother Chronic kidney disease (CKD) Diabetes Mother Diabetes Denies family history of Clotting disorder Suicide Anesthesia complication Bleeding disorder Social History Smoking and tobacco/nicotine status: never used tobacco/nicotine Alcohol intake: never Substance/Drug Use: never Adopted: No Caregiver/support person: No Lives independently: No Household members: spouse Marital status: service: No Current occupational status: disabled Sexually active: Yes Do you think of yourself as: Straight/Heterosexual Current gender identity: Male Morena/Anglican: Judaism Physical Exam 2 Const: GENERAL APPEARANCE: cooperative ORIENTATION/CONSCIOUSNESS: Yes awake, Yes oriented to person, Yes oriented to place and Yes oriented to time HENMT: COMMON NORMALS: normocephalic, atraumatic and hearing grossly normal bilaterally HEAD & SCALP: normocephalic and atraumatic Resp: COMMON NORMALS: normal respiratory effort, No retractions, No use of accessory muscles and clear to auscultation bilaterally AUSCULTATION: clear to auscultation bilaterally Cardio: COMMON NORMALS: regular rate, regular rhythm and No murmurs present (Cardio) RATE: regular rate RHYTHM: regular rhythm GI: COMMON NORMALS: Soft to palpation and No hepatosplenomegaly present A USCULTATION: Yes normoactive bowel sounds PALPATION: Yes Soft to palpation, No Tenderness to palpation present (GI), No Guarding due to palpation present (GI) and Yes No hepatosplenomegaly present Extremity: COMMON NORMALS: normal to inspection, capillary refill normal, no clubbing, cyanosis or edema, no calf tenderness and no pedal edema Neuro: SENSORIUM/ORIENTATION: Yes oriented to person, Yes oriented to place and Yes oriented to time Skin: COMMON NORMALS: no rashes or lesions noted GENERAL SKIN EXAM: no rashes or lesions noted Course 2 Vital Signs: Vital signs: Vital Signs Temperature 98.6 F 08/21/24 08:32 Pulse Rate 67 08/21/24 10:49 Respiratory Rate 18 08/21/24 08:32 Blood Pressure 166/93 08/21/24 08:32 Pulse Oximetry 94 08/21/24 10:49 MDM - Chest Pain Medical Decision Making Cardiac enzymes are negative. CTA of the chest did not show any acute pathology no pneumothorax pneumonia dissecting aneurysm or PE. EKG shows some lateral changes but does have been chronic and were present on the previous EKG. Increase metoprolol to 25 mg twice daily. Continue other medications and we will set the patient up for an outpatient Lexiscan sestamibi stress test. Medical Records I reviewed the patient's medical records. Lab Data I reviewed the patient's lab results. 08/21/24 08:50 08/21/24 08:50 Radiology Impressions Chest X-Ray 08/21/24 08:46 IMPRESSION: 1. Mild enlarged cardiac silhouette. 2. Linear left lower chest pulmonary atelectasis or scarring. 3. Degenerative and postsurgical changes are demonstrated, as described above. Chest CTA 08/21/24 12:21 IMPRESSION: 1. No pulmonary embolism. 2. No pneumonia. 3. Prior CABG. Laboratory Results WBC 14.92 10^3/uL (3.29-11.43) H 08/21/24 08:50 RBC 6.31 10^6/uL (3.85-5.65) H 08/21/24 08:50 Hgb 17.60 g/dL (11.27-16.99) H 08/21/24 08:50 Hct 53.9 % (37-53) H 08/21/24 08:50 MCV 85.4 fl (82-101) 08/21/24 08:50 MCH 27.9 pg (27-33) 08/21/24 08:50 MCHC 32.7 g/dL (30-55) 08/21/24 08:50 RDW 14.9 % (12.1-15.1) 08/21/24 08:50 Plt Count 144 10^3/cmm (157-399) L 08/21/24 08:50 MPV 12.1 fL (7.4-10.4) H 08/21/24 08:50 Neut % (Auto) 33.9 % 08/21/24 08:50 Lymph % (Auto) 57.0 % 08/21/24 08:50 Shannon % (Auto) 7.0 % 08/21/24 08:50 Eos % (Auto) 1.0 % 08/21/24 08:50 Baso % (Auto) 0.6 % 08/21/24 08:50 Neut # (Auto) 5.05 10^3/uL (1.8-7.7) 08/21/24 08:50 Lymph # (Auto) 8.5 10^3/uL (0.8-4.8) H 08/21/24 08:50 Shannon # (Auto) 1.1 10^3/uL (0.2-0.9) H 08/21/24 08:50 Eos # (Auto) 0.2 10^3/uL (0.0-0.8) 08/21/24 08:50 Baso # (Auto) 0.1 10^3/uL (0.0-0.1) 08/21/24 08:50 Nucleated RBC % (auto) 0 % 08/21/24 08:50 Nucleated RBCs # 0.0 /100WBC 08/21/24 08:50 Sodium 142 mmol/L (136-145) 08/21/24 08:50 Potassium 3.7 mmol/L (3.5-5.1) 08/21/24 08:50 Chloride 104 mmol/L (98-107) 08/21/24 08:50 Carbon Dioxide 25 mmol/L (22-29) 08/21/24 08:50 Anion Gap 16.7 (5-19) 08/21/24 08:50 BUN 14 mg/dL (8-23) 08/21/24 08:50 Creatinine 0.7 mg/dL (0.7-1.2) 08/21/24 08:50 GFR Calculation 113.2 mL/min (90-130) 08/21/24 08:50 Glucose 163 mg/dL (65-115) H 08/21/24 08:50 POC Glucose 111 mg/dL (70-110) H 08/21/24 13:40 Calculated Osmolality 298 mOsm/kg (285-295) H 08/21/24 08:50 Calcium 9.8 mg/dL (8.5-10.5) 08/21/24 08:50 Total Bilirubin 2.0 mg/dL (0.15-1.2) H 08/21/24 08:50 AST 27 U/L (0-40) 08/21/24 08:50 ALT 29 U/L (0-41) 08/21/24 08:50 Alkaline Phosphatase 101 U/L (40-130) 08/21/24 08:50 Troponin T Baseline 8 ng/L (0-15) 08/21/24 08:50 Troponin T 120 Minute 6.47 ng/L (0-15) 08/21/24 11:15 Delta Troponin T -1.53 ABS# (0-10) L 08/21/24 11:15 Total Protein 7.5 g/dL (6.6-8.7) 08/21/24 08:50 Albumin 4.7 g/dL (3.5-5.2) 08/21/24 08:50 Globulin 2.8 g/dL (1.3-4.6) 08/21/24 08:50 Urine Color Yellow (Yellow) 08/21/24 09:10 Urine Appearance Clear (CLEAR) 08/21/24 09:10 Urine pH 6.5 (5-7) 08/21/24 09:10 Ur Specific Bill[place] 1.030 (1.005-1.030) 08/21/24 09:10 Urine Protein Negative (Negative) 08/21/24 09:10 Urine Glucose (UA) 3+ (Normal) H 08/21/24 09:10 Urine Ketones Negative (Negative) 08/21/24 09:10 Urine Blood Negative (Negative) 08/21/24 09:10 Urine Nitrate Negative (Negative) 08/21/24 09:10 Urine Bilirubin Negative (Negative) 08/21/24 09:10 Urine Urobilinogen 0.2 mg/dL (Negative) 08/21/24 09:10 Ur Leukocyte Esterase Negative (Negative) 08/21/24 09:10 Urine RBC 3-5 /hpf (0-2) 08/21/24 09:10 Urine WBC 0-5 /hpf (0-5) 08/21/24 09:10 Ur Squamous Epith Cells 0-5 /hpf (0-5) 08/21/24 09:10 Amorphous Sediment Not Reportable 08/21/24 09:10 Urine Bacteria None seen /hpf (NONE) 08/21/24 09:10 Hyaline Casts 0-4 /lpf H 08/21/24 09:10 Coronavirus (PCR) Negative (Negative) 08/21/24 10:30 Influenza A (PCR) Negative (Negative) 08/21/24 10:30 Influenza Type B (PCR) Negative (Negative) 08/21/24 10:30 RSV (PCR) Negative (Negative) 08/21/24 10:30 All radiology interpretation(s) finalized by discharge Discharge Plan Discharge Patient Disposition: Home Clinical Impression: Atypical chest pain, Hypertension, Hx of type 2 diabetes mellitus Condition: Stable Prescriptions: New metoprolol tartrate 25 mg tablet 25 mg PO BID Qty: 60 0RF Discontinued metoprolol tartrate 50 mg tablet 25 mg PO BID Qty: 90 0RF No Action allopurinol 300 mg tablet 300 mg PO DAILY albuterol sulfate 90 mcg/actuation HFA aerosol inhaler 2 puff inhalation Q6H PRN (Reason: Shortness Of Breath) cholecalciferol (vitamin D3) 325 mcg (13,000 unit) capsule 325 mcg PO DAILY nitroglycerin [Nitrostat] 0.4 mg tablet, sublingual 0.4 mg sublingual Q5M PRN (Reason: chest pain) Qty: 25 3RF Rx Instructions: do not exceed 3 doses per episode magnesium 200 mg tablet 200 mg PO DAILY betamethasone valerate 0.1 % ointment 1 applic topical DAILY PRN (Reason: itching) 10 Days Qty: 45 1RF Imbruvica 280 mg tablet 280 mg PO DAILY mecobalamin (vitamin B12) 2,500 mcg tablet,chewable 2,500 mcg PO DAILY apple cider vinegar 300 mg tablet 300 mg PO DAILY potassium chloride 10 mEq tablet extended release 10 meq PO DAILY Qty: 90 3RF aspirin [Adult Aspirin Regimen] 81 mg tablet,delayed release (DR/EC) 81 mg PO DAILY Qty: 90 3RF losartan 25 mg tablet 25 mg PO DAILY Qty: 90 3RF amlodipine 10 mg tablet 10 mg PO DAILY Qty: 90 3RF (DME) pen needle, diabetic [Comfort EZ Pen Sesser] 32 gauge x 5/16 needle See Rx Instructions .Route Qty: 100 12RF Rx Instructions: As directed up to 4 times daily clopidogrel [Plavix] 75 mg tablet 75 mg PO DAILY Qty: 90 3RF atorvastatin 40 mg tablet 40 mg PO DAILY Qty: 90 3RF hydrochlorothiazide 12.5 mg tablet 12.5 mg PO DAILY Qty: 90 3RF cinnamon bark 500 mg Capsule 500 mg PO DAILY tramadol 50 mg tablet 50 mg PO BID insulin aspart U-100 [Novolog FlexPen U-100 Insulin] 100 unit/mL (3 mL) insulin pen 40 unit SUBCUT TID insulin glargine [Lantus Solostar U-100 Insulin] 100 unit/mL (3 mL) insulin pen 80 unit SUBCUT DAILY Jardiance 25 mg tablet 25 mg PO DAILY Discharge Orders: Discharge ED (Routine); Ordered 08/21/24 Ordered By: Mekhi Whitney Referrals: Lucía Vegas FNP [Primary Care Provider] - Discharge Diet: Usual diet Discharge Activity: Increase activity as tolerated Patient Instructions: Opioid Safety, Pain Management Activity Restrictions/Additional Instructions: Thank you for choosing [facility] for your healthcare needs today. It is very important that you follow up as instructed or that you return to the Emergency Department should you have concerns or if your condition changes or worsens in any way. You were seen in the emergency room with complaint of chest discomfort. Your cardiac enzymes are negative EKG did not show any acute changes. CTA of your chest did not show any pneumothorax pneumonia dissecting aneurysm or pulmonary emboli. Will go ahead and discharge you home for now. Will set you up for an outpatient Lexiscan sestamibi stress test. Also recommend that you increase your metoprolol to a full tablet twice a day Coding Level of Care Code ED Bulk Receiver for Amy Mayer
[2024-08-21 09:00] LABS: Basophils # 0.1 10^3/uL (0.0-0.1); Basophils % 0.6 %; Eosinophils # 0.2 10^3/uL (0.0-0.8); Hematocrit 53.9 % (37-53); Lymphocytes # 8.5 10^3/uL (0.8-4.8); Mean Corpuscular HGB Conc 32.7 g/dL (30-55); Mean Corpuscular Hemoglobin 27.9 pg (27-33); Mean Corpuscular Volume 85.4 fl (82-101); Mean Platelet Volume 12.1 fL (7.4-10.4); Monocytes # 1.1 10^3/uL (0.2-0.9); Neutrophils # 5.05 10^3/uL (1.8-7.7); Neutrophils % 33.9 %; Nucleated Red Blood Cells % 0 %; Platelet Count 144 10^3/cmm (157-399); Red Blood Count 6.31 10^6/uL (3.85-5.65); Red Cell Distribution Width 14.9 % (12.1-15.1); White Blood Count 14.92 10^3/uL (3.29-11.43)
[2024-08-21 09:18] LABS: Slide Review Slide Review Perform
[2024-08-21 09:19] LABS: Troponin(5th) Baseline 8 ng/L (0-15)
[2024-08-21 09:21] LABS: Alanine Aminotransferase 29 U/L (0-41); Albumin Level 4.7 g/dL (3.5-5.2); Alkaline Phosphatase 101 U/L (40-130); Blood Urea Nitrogen 14 mg/dL (8-23); Calcium 9.8 mg/dL (8.5-10.5); Carbon Dioxide 25 mmol/L (22-29); Chloride 104 mmol/L (98-107); Creatinine Clr Calc Pharmacy 111.9833; Globulin 2.8 g/dL (1.3-4.6); Glomerular Filtration Rate 113.2 mL/min (90-130); Glucose 163 mg/dL (65-115); Osmolality Calculated 298 mOsm/kg (285-295); Sodium 142 mmol/L (136-145); Total Protein 7.5 g/dL (6.6-8.7)
[2024-08-21 09:23] LABS: Anion Gap 16.7 (5-19); Aspartate Amino Transferase 27 U/L (0-40); Potassium 3.7 mmol/L (3.5-5.1)
[2024-08-21 09:29] LABS: Bilirubin Urine Negative (Negative); Blood Urine Negative (Negative); Glucose Urine UA 3+ (Normal); Ketones Urine Negative (Negative); Leukocyte Esterase Urine Negative (Negative); Nitrate Urine Negative (Negative); Protein Urine Negative (Negative); Urine Appearance Clear (CLEAR); Urine Color Yellow (Yellow); Urobilinogen Urine 0.2 mg/dL (Negative); pH Urine 6.5 (5-7)
[2024-08-21 09:35] LABS: Add Urine Microscopic? YES; Bacteria Urine None Seen /hpf; Hyaline Casts Urine 0-4 /lpf; Squamous Epithelial Cell Urine 0-5 /hpf (0-5); WBC Urine 0-5 /hpf (0-5)
--- NOTE | 2024-08-21 10:13 | ECG_ITS ---
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1960 Requested By: Mekhi Guillen Order Number: [id number] Reading MD: TIFF STEPHENS Measurements Intervals [place] Rate: 68 P: 43 MS: 198 QRS: 32 QRSD: 102 T: 134 QT: 384 QTc: 411 Interpretive Statements SINUS RHYTHM WITH OCCASIONAL SUPRAVENTRICULAR PREMATURE COMPLEXES ST DEVIATION AND MODERATE T-WAVE ABNORMALITY, CONSIDER LATERAL ISCHEMIA [-0.1+ mV T-WAVE IN I/aVL/V5/V6] Compared to ECG 08/21/2024 08:32:49 No significant changes Electronically Signed On 08-21-2024 23:19:39 BORDER PATROL AGENT by TIFF STEPHENS [email or web address]
[2024-08-21 10:23] VITALS: PULSE 73; O2SAT 96
[2024-08-21 10:49] VITALS: PULSE 67; O2SAT 94
[2024-08-21 11:33] LABS: Covid PCR NEGATIVE (Negative); Influenza A NEGATIVE (Negative); Influenza B NEGATIVE (Negative); Respiratory Syncytial Virus Ce NEGATIVE (Negative)
[2024-08-21 11:52] LABS: Troponin 5 2HR 6.47 ng/L (0-15)
[2024-08-21 11:54] LABS: Troponin 5 2HR Delta -1.53 ABS# (0-10)
--- NOTE | 2024-08-21 12:21 | CT_ITS ---
WS: [id number] CT CHEST ANGIOGRAPHY WITH REFORMATS HISTORY: Chest pain shortness of breath TECHNIQUE: Contiguous axial images are obtained through the chest during arterial injection of intrav enous contrast. Images are reconstructed to evaluate the pulmonary arteries. MIP imaging also reviewe d. All CT scans at [facility] use at least one of these dose optimization techniques: automat ed exposure control; mA and/or kV adjustment per patient size (includes targeted exams where dose is matched to clinical indication); or iterative reconstruction. CONTRAST: Omnipaque 350; 100 mL IV. DLP: 486.30 mGy.cm COMPARISON: None available. No pulmonary embolism. Normal sized pulmonary arteries. Normal aorta. Normal size heart with no RIGHT heart strain. No pericardial or pleural effusions. Mild interstitial prominence and hazy attenuation . RIGHT minor perifissural nodules. No mass or pneumonia. Great vessels are tortuous from the aortic arch. Prior CABG. No mediastinal or hilar adenopathy. RIGHT subclavian Mediport. No adrenal mass. Nonobstructing calcifications upper pole RIGHT kidney. Small parapelvic cyst upper p ole LEFT kidney. Gallbladder is not identified and may've been surgically removed. No destructive bone lesions. CT/CT angio chest PE protcl [id number] IMPRESSION: 1. No pulmonary embolism. 2. No pneumonia. 3. Prior CABG.
[2024-08-21] MEDS: TRAMadol 50 mg Tablet PO (13:38)
[2024-08-21 13:44] LABS: Glucose Point of Care 111 mg/dL (70-110)
[2024-08-21 14:08] VITALS: BP 161/88; PULSE 71; O2SAT 98
[2024-08-21 14:17] VITALS: BP 161/88; PULSE 71; O2SAT 98
--- NOTE | 2024-08-23 07:32 | DCPLANNER ---
Out patient request for Lexiscan sent to centralized scheduling
== END 2024-08-21 14:19 | disposition home or self-care (01) ==
PROVIDERS: Emergency Provider Family Medicine; PCP Registered Nurse
DX: R07.89 Other chest pain (principal); E11.9 Type 2 diabetes mellitus without complications; I10 Essential (primary) hypertension; I25.10 Atherosclerotic heart disease of native coronary artery without angina pectoris; Z85.47 Personal history of malignant neoplasm of testis; Z85.828 Personal history of other malignant neoplasm of skin; E78.5 Hyperlipidemia, unspecified
CPT/HCPCS: 36415; 36416; 71045; 71275; 80053; 81001; 82962; 84484; 85025; 87637; 93005; 99285

== ENCOUNTER → 2024-08-24 15:07 | Outpatient (BNVA) | payer MEDICARE, BC, SELFPAY | PROVIDERS: PCP Registered Nurse; Visit Provider Internal Medicine Cardiovascular Disease | DX: I25.10 Atherosclerotic heart disease of native coronary artery without angina pectoris (principal); E78.2 Mixed hyperlipidemia; I10 Essential (primary) hypertension; C91.10 Chronic lymphocytic leukemia of B-cell type not having achieved remission; Z95.1 Presence of aortocoronary bypass graft; E11.9 Type 2 diabetes mellitus without complications; Z79.4 Long term (current) use of insulin | CPT/HCPCS: 99214 ==

== ENCOUNTER 2024-09-18 08:55 | Outpatient (CLI) | payer MEDICARE, BC, SELFPAY ==
--- NOTE | 2024-09-18 | ECG_ITS ---
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 The perfusion scan will be documented separately. DATA: Baseline heart rate was 65 beats per minute. Baseline blood pressure was 158/76 millimeters of mercury. Target heart rate was 155. Maximum heart rate achieved was 103. which was 66% of the predicted target heart rate. Maximum blood pressure was 163/77 millimeters of mercury. The reason for ending the test was completion of the protocol. The patient did not experience any symptoms. ELECTROCARDIOGRAM: BASELINE: Sinus rhythm. Normal axis. Otherwise, interventricular conduction delay, lateral leads T wave inversion at the baseline, could be nonspecific EXERCISE: After Lexiscan injection, no ST-T changes more than what is present at the baseline noted CONCLUSION: Please note due to baseline abnormality of the EKG specificity and sensitivity of the EKG portion of LexiScan MIBI stress test will be low 1. EKG not suggestive of ischemia 2. Lexiscan injection unremarkable. 3. Perfusion scan will be documented separately. Electronically Signed On 10-12-2024 18:20:47 CDT by ANEESH COATS [email or web address]
[2024-09-18 09:08] VITALS: BMI 31.4
--- NOTE | 2024-09-18 09:11 | NMCV_ITS ---
NM glenn perf SPECT r/s* [id number] Jenniffer Damián Age: 64 Gender: M : 1960 Exam Date: 09/18/2024 10:02 Ordering Phys: Aneesh Coats MD ([email or web address]) Technologist: ZEE Hua Exam Location: [facility] Indications: cp STRESS TEST Please see separate stress test report in [facility] for full findings IMAGE PROTOCOL Rest/Stress 1 Lexiscan Day Radiopharmaceutical Dose (mCi) Administration Site Administered by Rest: Tc-99m 10.9 IV ZEE Traylor Sestamibi Stress:Tc-99m 33 IV ZEE Traylor Sestamibi Rest: 18-Sep-2024 60 Discovery 630 Stress: 18-Sep-2024 30 Discovery 630 0.4mg Lexiscan. Images obtained in supine and prone position. SPECT RESULTS Technical Quality: Good Raw Data Analysis: Normal Image Corrections: No attenuation or motion correction applied Summed Stress Score: 1 Summed Rest Score: 1 Summed Difference Score: 1 PERFUSION FINDINGS Medium sized area of fixed perfusion fat noted in basal to mid inferior wall in the absence of wall motion abnormalities suggestive of an artifact FUNCTIONAL RESULTS (calculated via Gated SPECT) Stress Image LV EF (%): 72 Stress EDV (mL):88 TID: 1.12 Stress ESV (mL):25 FUNCTIONAL FINDINGS: There is normal left ventricular systolic function. IMPRESSIONS This study is negative for ischemia. Aneesh Coats MD (Electronically Signed) Final Date: 18 September 2024 19:52 S
[2024-09-18] MEDS: regadenoson 0.4 Mg/5 ml Syringe IVP (10:27)
== END 2024-09-18 08:56 | disposition home or self-care (01) ==
LOC: CDL 08:56
PROVIDERS: PCP Registered Nurse; Visit Provider Internal Medicine Cardiovascular Disease
DX: R07.9 Chest pain, unspecified (principal); R93.1 Abnormal findings on diagnostic imaging of heart and coronary circulation
CPT/HCPCS: 36415; 78452; 96374; A9500; J2785

== ENCOUNTER 2024-09-18 13:32 | Outpatient (CLI) | payer MEDICARE, BC, SELFPAY ==
--- NOTE | 2024-09-18 14:00 | USCV_ITS ---
Damián Abad Age: 64 Gender: M : 1960 Exam Date: 09/18/2024 14:07 Ordering Phys: Aneesh Coats MD ([email or web address]) Technologist: CT Exam Location: [facility] [place] Indication: cp/sob BP: 150 / 70 HR: 71 Rhythm: Sinus Technical Quality: Adequate MEASUREMENTS (Male / Female) Normal Values 2D ECHO LVOT Diameter 2.0 cm LV Ejection Fraction MOD 4C 65.0 % LV Ejection Fraction MOD 2C 62.2 % LV Ejection Fraction 2C AL 64.2 % LA Diameter 4.8 cm RA Systolic Volume 4C AL 55.0 ml RA Systolic Volume 4C MOD 55.2 ml LA Sys Volume AL 72.1 cm cubed LA Sys Volume Index AL 31.5 cm cubed/m squared Aorta at Sinotubular Diameter 2.6 cm IVC Diameter 2.0 cm M-MODE LA Ao Ratio MM 2.0 AV Cusp Separation MM 2.0 cm DOPPLER AV Peak Velocity 153.0 cm/s LVOT Peak Velocity 109.0 cm/s AV Area Cont Eq vti 2.9 cm squared AV Area Cont Eq pk 2.2 cm squared MV Peak Velocity 84.0 cm/s MV Area PHT 3.7 cm squared Mitral E to A Ratio 1.0 TV Peak Velocity 167.5 cm/s TR Peak Velocity 186.0 cm/s TR Peak Gradient 13.8 mmHg TV Peak E Velocity 69.0 cm/s PV Peak Velocity 139.5 cm/s FINDINGS Left Ventricle Normal left ventricular size, systolic function and wall thickness, with no regional wall motion abnormalities. Left ventricular ejection fraction is estimated at 60 %. Grade I/IV diastolic dysfunction (abnormal relaxation filling pattern), normal to mildly elevated filling pressures. Right Ventricle The right ventricle is normal in size and function. Right Atrium The right atrium is normal in size. Left Atrium The left atrium is normal in size. Mitral Valve Mildly thickened mitral valve. Moderate mitral annular calcification. No mitral valve stenosis. Mild mitral valve regurgitation. Aortic Valve Moderate aortic valve calcification. No aortic valve stenosis. Trace aortic valve regurgitation. Tricuspid Valve Structurally normal tricuspid valve without significant stenosis or regurgitation. Pulmonary artery systolic pressure is normal. Pulmonic Valve Structurally normal pulmonic valve without significant stenosis. There is no pulmonic regurgitation. Pericardium Normal pericardium without effusion. Aorta Normal ascending aorta dimension. IVC The inferior vena cava appears normal. CONCLUSIONS Normal left ventricular size, systolic function and wall thickness, with no regional wall motion abnormalities. Left ventricular ejection fraction is estimated at 60 %. Grade I/IV diastolic dysfunction (abnormal relaxation filling pattern), normal to mildly elevated filling pressures. Moderate aortic valve calcification. No aortic valve stenosis. Trace aortic valve regurgitation. There is no pericardial effusion. Right atrial pressure is around 5 mm of mercury. Aneesh Coats MD (Electronically Signed) Final Date: 27 September 2024 21:58 S
== END 2024-09-18 13:33 | disposition home or self-care (01) ==
PROVIDERS: PCP Registered Nurse; Visit Provider Internal Medicine Cardiovascular Disease
DX: R07.9 Chest pain, unspecified (principal); R06.02 Shortness of breath; R93.1 Abnormal findings on diagnostic imaging of heart and coronary circulation; I34.81 Nonrheumatic mitral (valve) annulus calcification; I34.0 Nonrheumatic mitral (valve) insufficiency; I35.8 Other nonrheumatic aortic valve disorders
CPT/HCPCS: 93306

== ENCOUNTER → 2024-10-03 09:42 | Outpatient (BNVA) | payer MEDICARE, BC, SELFPAY | PROVIDERS: PCP Registered Nurse; Visit Provider Internal Medicine | DX: E11.9 Type 2 diabetes mellitus without complications (principal); E78.2 Mixed hyperlipidemia; I25.10 Atherosclerotic heart disease of native coronary artery without angina pectoris | CPT/HCPCS: 99214 ==

== ENCOUNTER → 2024-10-05 13:43 | Outpatient (BNVA) | payer MEDICARE, BC, SELFPAY | PROVIDERS: PCP Registered Nurse; Visit Provider Orthopaedic Surgery | DX: M48.062 Spinal stenosis, lumbar region with neurogenic claudication (principal) | CPT/HCPCS: 99214 ==

== ENCOUNTER 2024-10-09 12:47 | Day surgery (SDC) | payer MEDICARE, BC, SELFPAY ==
[2024-10-09] VITALS (10 sets, daily range): BP systolic 137–161; BP diastolic 76–99; PULSE 77–91; RESP 12–21; TEMP 36.1–36.7; O2SAT 95–100; BMI 31.9
--- NOTE | 2024-10-09 13:40 | W.PM.OPSUD ---
Surgery/Procedure H&P Update DATE OF PROCEDURE: October 09, 2024 DATE H&P PERFORMED: 10/05/24 H&P UPDATE INFORMATION: I have reviewed H&P completed within last 30 days, I have examined patient prior to procedure and No changes to prior documentation PREOP DIAGNOSIS: Lumbar stenosis with neurogenic claudication PLANNED PROCEDURE: Operation Date: 10/09/24 14:50 Proposed Procedures p Lumbar Decompression(Not Applicable) - Zelalem Hodgson DO
[2024-10-09 13:44] LABS: Glucose Point of Care 124 mg/dL (70-110)
[2024-10-09] MEDS: sodium chloride 0.9% 1,000 ML 30 ML IV (13:44)
--- NOTE | 2024-10-09 14:13 | ANES.PREANE2 ---
Pre-Anesthetic Assessment Height/Weight: Height 1.8 m Weight 103.873 kg Temp Pulse Resp BP Pulse Ox O2 Del Method 98.0 F 77 18 149/83 95 Room Air 10/09/24 13:22 10/09/24 13:22 10/09/24 13:22 10/09/24 13:22 10/09/24 13:22 10/09/24 13:22 Preop Diagnosis: Lumbar stenosis with neurogenic claudication Operation Date: 10/09/24 14:50 Proposed Procedures p Lumbar Decompression(Not Applicable) - Zelalem Hodgson, DO Familial anesthetic complications: Sore uvula after surgery was told tube moved when they turned him and an creative intern put his tube it Was Beta Aidan taken within 24 hours: N/A Was Clonidine taken within 24 hours: N/A Last intake: Intake Last Liquid Date 10/09/24 Last Liquid Time 08:00 Last Solid Date 10/08/24 Last Solid Time 21:00 Social No alcohol and No tobacco Exam alert, oriented x 3, clear to auscultation bilaterally and regular rate & rhythm Airway Mallampati: Class III Dentition: full CV/HEM Coronary Artery Disease (cabg) and Hypertension Metabolic Diabetes Mellitus and Hyperlipidemia Anesthetic Plan ASA status: 3 Anesthesia: General Risk of > 500 ml blood loss (7ml/kg in children): No Medications/Allergies Home Medications ?Medication ?Instructions ?Recorded ?Confirmed ?Last Taken ?Type albuterol sulfate 90 mcg/actuation 2 puff inhalation Q6H PRN 03/10/21 10/06/24 Unknown History aerosol inhaler Shortness Of Breath allopurinol 300 mg tablet 300 mg PO DAILY 03/10/21 10/06/24 10/08/24 History cholecalciferol (vitamin D3) 325 325 mcg PO DAILY 11/25/21 10/06/24 10/06/24 History mcg (13,000 unit) capsule aspirin 81 mg tablet,delayed 81 mg PO DAILY #90 tabs 06/30/22 10/06/24 10/05/24 Rx release (Adult Aspirin Regimen) amlodipine 10 mg tablet 10 mg PO DAILY #90 tabs 06/08/23 10/06/24 10/09/24 Rx nitroglycerin 0.4 mg sublingual 0.4 mg sublingual Q5M PRN chest 08/25/23 10/06/24 Unknown Rx tablet (Nitrostat) pain #25 tabs pen needle, diabetic 32 gauge x #100 ea 01/18/24 10/05/24 Unknown Rx 12/15 (Comfort EZ [employer]ney) clopidogrel 75 mg tablet (Plavix) 75 mg PO DAILY #90 tabs 02/22/24 10/06/24 10/05/24 Rx atorvastatin 40 mg tablet 40 mg PO DAILY #90 tabs 05/19/24 10/06/24 10/08/24 Rx apple cider vinegar 300 mg tablet 300 mg PO DAILY 06/08/24 10/06/24 10/06/24 History ibrutinib 280 mg tablet (Imbruvica) 280 mg PO DAILY 06/08/24 10/06/24 10/06/24 History mecobalamin (vitamin B12) 2,500 2,500 mcg PO DAILY 06/08/24 10/06/24 08/21/24 History mcg chewable tablet magnesium 200 mg tablet 200 mg PO DAILY 07/04/24 10/06/24 10/06/24 History hydrochlorothiazide 12.5 mg tablet 12.5 mg PO DAILY #90 tabs 08/10/24 10/06/24 10/06/24 Rx cinnamon bark 500 mg capsule 500 mg PO DAILY 08/21/24 10/06/24 10/06/24 History empagliflozin 25 mg tablet 25 mg PO DAILY 08/21/24 10/06/24 10/07/24 History (Jardiance) insulin aspart U-100 100 unit/mL 50 unit SUBCUT TID 08/21/24 10/06/24 10/08/24 History (3 mL) subcutaneous pen (Novolog FlexPen U-100 Insulin aspart) insulin glargine 100 unit/mL (3 80 unit SUBCUT DAILY 08/21/24 10/06/24 10/08/24 History mL) subcutaneous pen (Lantus Solostar U-100 Insulin) tramadol 50 mg tablet 50 mg PO BID pain 08/21/24 10/06/24 08/20/24 History losartan 50 mg tablet 50 mg PO DAILY #90 tabs 08/24/24 10/06/24 10/06/24 Rx potassium chloride 10 mEq 10 meq PO DAILY #90 tabs 09/12/24 10/06/24 10/06/24 Rx tablet,extended release insulin pump cart,auto,BT,G6/7 #5 ea 09/15/24 10/05/24 Unknown Rx (Omnipod 5 G6-G7 Pods (Gen 5) subcutaneous cartridge) insulin pump cartridge,auto #1 ea 09/15/24 10/05/24 Unknown Rx dose,BT,G6/G7 with controller subcutaneous (Omnipod 5 G6-G7 Intro Kit(Gen 5) subcutaneous cartridge and controller) metoprolol tartrate 25 mg tablet 25 mg PO BID #90 tabs 09/25/24 10/06/24 10/09/24 Rx Allergies Allergy/AdvReac Type Severity Reaction Status Date / Time acetaminophen (From Vicodin) Allergy Unknown Verified 10/05/24 14:38 adhesive Allergy rash Verified 10/05/24 14:38 adhesive tape Allergy rash Verified 10/05/24 14:38 dapagliflozin (From Farxiga) Allergy ADR-Gastrointestinal Verified 10/06/24 10:45 Upset dulaglutide Allergy N/V Verified 10/05/24 14:38 fentanyl Allergy ADR-Dizzine Verified 10/06/24 10:46 ss hydrocodone Allergy itching Verified 10/05/24 14:38 latex Allergy rash Verified 10/05/24 14:38 semaglutide Allergy N/V Verified 10/05/24 14:38 bee venom Allergy swelling Uncoded 10/05/24 14:38 of face Current Medications Generic Name Dose Route Start Last Admin Trade Name Freq PRN Reason Stop Dose Admin Sodium Chloride 1,000 mls @ 30 mls/hr 10/09/24 13:00 10/09/24 13:44 Sodium Chloride 0.9% IV 10/10/24 12:59 30 mls/hr .Q24H SMITH Administration PFSH Anesthesia Medical History CAD (coronary artery disease) Chronic lymphocytic leukemia (CLL), B-cell Atherosclerosis Hx of angina pectoris Asthma Testicular cancer Hx of type 2 diabetes mellitus Hyperlipidemia Hypertension Lyme disease Renal stones History of skin cancer Myocardial infarction Surgical History History of lumbar surgery Hx of spinal fusion History of back surgery Hx of cholecystectomy Hx of coronary artery bypass graft Family History Father CAD (coronary artery disease) Lung disease Brother CAD (coronary artery disease) Cancer Dementia Diabetes Lung disease Grandfather Cancer Stroke Family/Other Cancer Chronic kidney disease (CKD) Diabetes Lung disease Grandmother Chronic kidney disease (CKD) Diabetes Mother Diabetes Denies family history of Clotting disorder Suicide Anesthesia complication Bleeding disorder Social History Smoking and tobacco/nicotine status: never used tobacco/nicotine Alcohol intake: never Substance/Drug Use: never Adopted: No Caregiver/support person: No Lives independently: No Household members: spouse Marital status: service: No Current occupational status: disabled Sexually active: Yes Do you think of yourself as: Straight/Heterosexual Current gender identity: Male Morena/Confucianist: Mandaen Data Anesthesia Cardiac Studies: Echocardiogram 09/18/24 Sestamibi Stress Test (Cardiology) 09/18/24
[2024-10-09] MEDS: ceFAZolin 2,000 mg SDV 2000 MG IVP (14:25)
[2024-10-09] MEDS: lidocaine-epi 1% PF 1:200,000 30 mL SDV INJECTION (15:19)
--- NOTE | 2024-10-09 16:41 | XR_ITS ---
WS: [id number] C-[facility] RADIOGRAPHS LUMBAR SPINE; 3 IMAGES HISTORY: or pic, decompression COMPARISON: None available. Intraoperative imaging during lumbar spine decompression. XR/XR lumbar spine 1V [id number] IMPRESSION: Intraoperative imaging during spinal decompression.
--- NOTE | 2024-10-09 16:58 | PM.OP ---
Operative Report Date of procedure: October 09, 2024 Pre-op diagnosis: L3-4 lumbar stenosis with neurogenic claudication L1 to disc herniation with radiculopathy Post-op diagnosis: same Procedure done: 1. L3-4 laminectomy and partial facetectomy 2. L1 to laminectomy with partial facetectomy and discectomy Surgeon: Zelalem Hodgson DO Estimated blood loss (mL): 50 Procedure: 1. L3-4 laminectomy and partial facetectomy 2. L1 to laminectomy with partial facetectomy and discectomy Patient is brought to the operative suite. After undergoing anesthesia they are placed in the prone position. All areas of impingement are well padded. Patient is then prepped and draped in the normal sterile fashion. A skin incision is made over the L3/4 level. This is confirmed under c-arm guidance. A series of dilators are passed and the tubular retractor is docked on the L3 lamina. A bovie is used to clear the soft tissue off the lamina and the L 3/4 facet joint. A high speed trang is then used to perform the laminectomy and take down the medial aspect of the L 3/4 facet joint. A kerrison rongeure was then used to take down the remaining lamina and smooth the edge of the laminectomy up to the point where the ligamentum flavum attaches. Attention was then brought to the medial aspect of the facet joint. The remaining medial aspect of the superior and inferior aspect of the facet joint were taken down with the kerrison from the pedicle of L3 to L 4. The facet joint had significant hypertrophy. Attention was then brought to the Ligamentum Flavum. The ligament was taken down from the lamina of L3 to L4 and out medially to the remaining facet joint. The ligament was thick. The dura was then exposed. The dura was in good repair. The L3 nerve was then traced with a curette out the L3/4 foramen and found to be adequately decompressed. The L4 nerve was traced with a curette around the L4 pedicle. The lateral recess was opened with a kerrison helping to further decompress the L4 nerve. Wound is then irrigated copiously with saline and surgiflo is used to stop any bleeding. The tubular retractor is removed A skin incision is made over the L1/2 level. This is confirmed under c-arm guidance. A series of dilators are passed and the tubular retractor is docked on the L1 lamina. A bovie is used to clear the soft tissue off the lamina and the L 1/2 facet joint. A high speed trang is then used to perform the laminectomy and take down the medial aspect of the L 1/2 facet joint. A kerrison rongeure was then used to take down the remaining lamina and smooth the edge of the laminectomy up to the point where the ligamentum flavum attaches. Attention was then brought to the medial aspect of the facet joint. The remaining medial aspect of the superior and inferior aspect of the facet joint were taken down with the kerrison from the pedicle of L1 to L 2. The facet joint had significant hypertrophy. Attention was then brought to the Ligamentum Flavum. The ligament was taken down from the lamina of L1 to L2 and out medially to the remaining facet joint. The ligament was thick. The dura was then exposed. The dura was in good repair. The L1 nerve was then traced with a curette out the L1/2 foramen and found to be adequately decompressed. The L2 nerve was traced with a curette around the L2 pedicle. The lateral recess was opened with a kerrison helping to further decompress the L2 nerve. Wound is then irrigated copiously with saline and surgiflo is used to stop any bleeding. The tubular retractor is removed and the wound is closed with vicryl and monocryl suture. Glue is then used to protect the wound. A sterile dressing is then placed. Patient was then placed in the supine position and transferred to the PACU in stable condition.
[2024-10-09 17:11] LABS: Glucose Point of Care 147 mg/dL (70-110)
--- NOTE | 2024-10-09 18:10 | ANE.PACU2 ---
Inpatient post-anesthesia follow up: Airway intact: Yes Vital signs: Temperature 97.9 F Pulse Rate 86 Respiratory Rate 17 Blood Pressure 137/76 Pulse Oximetry 96 Oxygen Delivery Me thod Room Air Oxygen Flow Rate 8 Fraction of Inspir ed Oxygen Hydration adequate: Yes Nausea and vomiting: No Pain level: 1 Mental status: Baseline
== END 2024-10-09 18:00 | disposition home or self-care (01) ==
PROVIDERS: PCP Registered Nurse; Visit Provider Orthopaedic Surgery
PROC: (CPT 63005; principal; 2024-10-09 14:30)
PROC: (CPT 63047; 2024-10-09 14:30)
DX: M48.062 Spinal stenosis, lumbar region with neurogenic claudication (principal); M51.16 Intervertebral disc disorders with radiculopathy, lumbar region; E11.9 Type 2 diabetes mellitus without complications; E78.5 Hyperlipidemia, unspecified; I25.10 Atherosclerotic heart disease of native coronary artery without angina pectoris; I10 Essential (primary) hypertension; I25.2 Old myocardial infarction; Z95.1 Presence of aortocoronary bypass graft; Z79.899 Other long term (current) drug therapy; Z79.82 Long term (current) use of aspirin; Z79.02 Long term (current) use of antithrombotics/antiplatelets; Z79.4 Long term (current) use of insulin; Z79.84 Long term (current) use of oral hypoglycemic drugs; Z88.8 Allergy status to other drugs, medicaments and biological substances; Z91.040 Latex allergy status; Z91.09 Other allergy status, other than to drugs and biological substances; Z96.41 Presence of insulin pump (external) (internal); Z85.6 Personal history of leukemia; Z85.47 Personal history of malignant neoplasm of testis; Z85.828 Personal history of other malignant neoplasm of skin; Z98.1 Arthrodesis status; Z90.49 Acquired absence of other specified parts of digestive tract
CPT/HCPCS: 63047; 63048; 63030; 36416; 72020; 76000; 82962; J0330; J0690; J1100; J2250; J2405; J2704; J3010; J3490; J7030

== ENCOUNTER 2024-10-14 18:58 | Emergency (ER) | payer MEDICARE, BC, SELFPAY ==
[2024-10-14 19:06] VITALS: BP 152/109; PULSE 88; RESP 20; TEMP 36.6; O2SAT 94; BMI 30.7
--- NOTE | 2024-10-14 19:07 | CTR_ITS ---
PROCEDURE INFORMATION: Exam: CT Lumbar Spine Without Contrast Exam date and time: 10/14/2024 7:43 PM Age: 64 years old Clinical indication: Lumbago; Prior surgery; Surgery date: 3-7 days post-operative; Surgery type: Lumbar fusion x 5 days ago; C/O worsening post op pain with fever since lumbar fusion 10/09/2024; ; Additional info: Post op lower back pain with drainage from wound TECHNIQUE: Imaging protocol: Computed tomography of the lumbar spine without contrast. Total images: 549 Radiation optimization: All CT scans at this facility use at least one of these dose optimization techniques: automated exposure control; mA and/or kV adjustment per patient size (includes targeted exams where dose is matched to clinical indication); or iterative reconstruction. COMPARISON: MR lumbar spine wo con* [id number] 07/06/2024 9:11 AM RADIATION DOSE METRICS: Total DLP (mGy-cm): 1114.6 FINDINGS: Bones/joints: There are considered to be five [id number] lumbar-type vertebral bodies designated L1 through L5. Since the prior study, bilateral transpedicular screws have been placed at L4 and L5, maintained separately on the right and left by vertical rods. The screws terminate within the vertebral bodies. Solid osseous fusion of the left L4-L5 facet joint and partial osseous fusion of the right L4-L5 facet joint. An intervertebral disc device is present within the L4-L5 disc space. No acute fracture identified. No subluxation noted. Mild intervertebral disc space narrowing at L1-L2. There is predominantly right paracentral posterior osteophytic ridging and potentially disc material at L1-L2. The patient is status post a right L1-L2 laminectomy , with low-density material including possible small amount of gas within the surgical bed consistent with postoperative change given recent surgery. There is central canal stenosis at L2-L3 secondary to short pedicles and degenerative facet arthropathy. Prior right laminectomy at L3-L4 with low-density material consistent with postoperative gas Soft tissues: Atherosclerosis. Nonobstructive right intrarenal calculus. CT/CT lumbar spine wo con* [id number] IMPRESSION: 1. Status post right laminectomy at L1-L2 and L3-L4, with posterior fusion at L4-L5 an intervertebral disc device placement. Findings consistent with postoperative change. Superimposed infection is not radiographically excludable.
--- NOTE | 2024-10-14 19:12 | W.ED.BACK ---
HPI - Back Pain/Injury General: Chief Complaint: Back Pain/Injury Stated Complaint: back pain post surgery Time Seen by Provider: 10/14/24 19:01 History of Present Illness: Patient is a 64-year-old man that presents to the emergency department 5 days status post L1/L2 and L3/L4 laminectomy and partial facetectomy. Patient reports he was discharged home with Tylenol and Kunkle. He states that his pain has progressed and today he developed oozing from one of the surgical sites. He was able to contact his primary surgeon's office who recommended evaluation Wednesday in office but patient felt he could not wait till that time. Patient rates his pain a 10 out of 10. He denies any new radicular symptoms in lower extremities Denies any falls or trauma. patient's medical history and includes CAD, CLL, B-cell lymphoma, HTN, HLD, type 2 diabetes, prior AMI. Related Data Home Medications ?Medication ?Instructions ?Recorded ?Confirmed albuterol sulfate 90 mcg/actuation 2 puff inhalation Q6H PRN 03/10/21 10/06/24 aerosol inhaler Shortness Of Breath allopurinol 300 mg tablet 300 mg PO DAILY 03/10/21 10/06/24 cholecalciferol (vitamin D3) 325 325 mcg PO DAILY 11/25/21 10/06/24 mcg (13,000 unit) capsule apple cider vinegar 300 mg tablet 300 mg PO DAILY 06/08/24 10/06/24 ibrutinib 280 mg tablet (Imbruvica) 280 mg PO DAILY 06/08/24 10/06/24 mecobalamin (vitamin B12) 2,500 2,500 mcg PO DAILY 06/08/24 10/06/24 mcg chewable tablet magnesium 200 mg tablet 200 mg PO DAILY 07/04/24 10/06/24 cinnamon bark 500 mg capsule 500 mg PO DAILY 08/21/24 10/06/24 empagliflozin 25 mg tablet 25 mg PO DAILY 08/21/24 10/06/24 (Jardiance) insulin aspart U-100 100 unit/mL 50 unit SUBCUT TID 08/21/24 10/06/24 (3 mL) subcutaneous pen (Novolog FlexPen U-100 Insulin aspart) insulin glargine 100 unit/mL (3 80 unit SUBCUT DAILY 01/20/25 03/07/25 mL) subcutaneous pen (Lantus Solostar U-100 Insulin) tramadol 50 mg tablet 50 mg PO BID pain 08/21/24 10/06/24 Previous Rx's ?Medication ?Instructions ?Recorded aspirin 81 mg tablet,delayed 81 mg PO DAILY #90 tabs 06/30/22 release (Adult Aspirin Regimen) Held on 10/09/24. Instructions: Resume on 10/12/24. amlodipine 10 mg tablet 10 mg PO DAILY #90 tabs 06/08/23 nitroglycerin 0.4 mg sublingual 0.4 mg sublingual Q5M PRN chest 08/25/23 tablet (Nitrostat) pain #25 tabs pen needle, diabetic 32 gauge x #100 ea 01/18/24 5/ (Comfort EZ Pen [place]) clopidogrel 75 mg tablet (Plavix) 75 mg PO DAILY #90 tabs 02/22/24 Held on 10/09/24. Instructions: Resume on 10/12/24. atorvastatin 40 mg tablet 40 mg PO DAILY #90 tabs 05/19/24 hydrochlorothiazide 12.5 mg tablet 12.5 mg PO DAILY #90 tabs 08/10/24 losartan 50 mg tablet 50 mg PO DAILY #90 tabs 08/24/24 potassium chloride 10 mEq 10 meq PO DAILY #90 tabs 09/12/24 tablet,extended release insulin pump cart,auto,BT,G6/7 #5 ea 09/15/24 (Omnipod 5 G6-G7 Pods (Gen 5) subcutaneous cartridge) insulin pump cartridge,auto #1 ea 09/15/24 dose,BT,G6/G7 with controller subcutaneous (Omnipod 5 G6-G7 Intro Kit(Gen 5) subcutaneous cartridge and controller) metoprolol tartrate 25 mg tablet 25 mg PO BID #90 tabs 09/25/24 oxycodone 5 mg tablet 5 mg PO Q4H PRN pain 7 days #42 10/09/24 tabs amoxicillin 875 mg-potassium 1 tab PO BID 7 days #14 tabs 10/14/24 clavulanate 125 mg tablet doxycycline hyclate 100 mg tablet 100 mg PO BID 7 days #14 tabs 10/14/24 methocarbamol 500 mg tablet 1,000 mg (2 x 500 mg) PO Q6H PRN 10/14/24 muscle spasm #30 tabs methylprednisolone 4 mg tablets in See Rx Instructions PO .COMPLEX 10/14/24 a dose pack (Medrol (Jayce)) #21 ea Allergies Allergy/AdvReac Type Severity Reaction Status Date / Time acetaminophen (From Vicodin) Allergy Unknown Verified 10/05/24 14:38 adhesive Allergy rash Verified 10/05/24 14:38 adhesive tape Allergy rash Verified 10/05/24 14:38 dapagliflozin (From Farxiga) Allergy ADR-Gastrointestinal Verified 10/06/24 10:45 Upset dulaglutide Allergy N/V Verified 10/05/24 14:38 fentanyl Allergy ADR-Dizzine Verified 10/06/24 10:46 ss hydrocodone Allergy itching Verified 10/05/24 14:38 latex Allergy rash Verified 10/05/24 14:38 semaglutide Allergy N/V Verified 10/05/24 14:38 bee venom Allergy swelling Uncoded 10/05/24 14:38 of face Review of Systems General: Reports: 10 or more systems reviewed and unremarkable except in HPI and below PFSH ED PFSH: Medical History CAD (coronary artery disease) Chronic lymphocytic leukemia (CLL), B-cell Atherosclerosis Hx of angina pectoris Asthma Testicular cancer Hx of type 2 diabetes mellitus Hyperlipidemia Hypertension Lyme disease Renal stones History of skin cancer Myocardial infarction Surgical History History of lumbar surgery Hx of spinal fusion History of back surgery Hx of cholecystectomy Hx of coronary artery bypass graft Family History Father CAD (coronary artery disease) Lung disease Brother CAD (coronary artery disease) Cancer Dementia Diabetes Lung disease Grandfather Cancer Stroke Family/Other Cancer Chronic kidney disease (CKD) Diabetes Lung disease Grandmother Chronic kidney disease (CKD) Diabetes Mother Diabetes Denies family history of Clotting disorder Suicide Anesthesia complication Bleeding disorder Social History Smoking and tobacco/nicotine status: never used tobacco/nicotine Alcohol intake: never Substance/Drug Use: never Adopted: No Caregiver/support person: No Lives independently: No Household members: spouse Marital status: service: No Current occupational status: disabled Sexually active: Yes Do you think of yourself as: Straight/Heterosexual Current gender identity: Male Morena/Anglican: Restoration Physical Exam Const: COMMON NORMALS: no acute distress, patient oriented x3 and alert GENERAL APPEARANCE: cooperative ORIENTATION/CONSCIOUSNESS: Yes awake, Yes oriented to person, Yes oriented to place and Yes oriented to time HENMT: COMMON NORMALS: normocephalic and atraumatic HEAD & SCALP: normocephalic and atraumatic FACE & SINUS: normal facial exam MOUTH: Normal oral and palatal mucosa present THROAT: posterior oropharynx normal Eye: COMMON NORMALS: Equal, round and reactive pupils present, EOMs intact bilaterally, conjunctivae normal and no scleral icterus GENERAL EYE: appearance normal, both eyes and all related structures ALIGNMENT: Yes alignment normal PERIORBITAL: periorbital findings normal CONJUNCTIVA: Yes conjunctivae normal PUPIL: Yes Equal, round and reactive pupils present Neck/C-Spine: COMMON NORMALS: full ROM GENERAL: Yes normal visual inspection Lymph: LYMPHATIC: no lymphadenopathy noted Chest: COMMONS NORMALS: normal inspection of the chest Breast/axilla inspection: Yes no chest deformity, asymmetry, normal contours, no nodules, masses, tenderness Resp: COMMON NORMALS: normal respiratory effort, No retractions and No use of accessory muscles EFFORT & INSPECTION: Yes able to speak in complete sentences and Yes symmetric chest movement AUSCULTATION: diminished lung sounds diffuse Cardio: COMMON NORMALS: regular rate, regular rhythm and Peripheral pulses 2+ throughout RATE: regular rate RHYTHM: regular rhythm PERIPHERAL PULSES: Peripheral pulses 2+ throughout GI: COMMON NORMALS: Normal to inspection, nondistended, normoactive bowel sounds present, Soft to palpation, non-tender and No hepatosplenomegaly present INSPECTION: Yes normal to inspection AUSCULTATION: Yes normoactive bowel sounds PALPATION: Yes Soft to palpation and Yes No hepatosplenomegaly present RECTAL EXAM: Yes deferred Back/Pelvis: OTHER: Lumbar back pain Surgical site is well-approximated. There is some oozing from the proximal aspect of the caudal incision. He is complaining of lumbar back pain with no new radicular symptoms. He has 5/5 strength in hip flexor, quad, gastroc, ant tib and toe extensors. Sensation intact although mildly altered. This is chronic though. Extremity: COMMON NORMALS: normal to inspection GENERAL: Yes normal exam except as noted Neuro: COMMON NORMALS: patient oriented x3 SENSORIUM/ORIENTATION: Yes alert, Yes oriented to person, Yes oriented to place and Yes oriented to time CRANIAL NERVES: Yes CN normal except as noted Psych: COMMON NORMALS: mental status grossly normal, Normal thought process present, cooperative, activity/motor behavior normal, denies homicidal ideation and denies suicidal ideation THOUGHT PROCESS: Normal thought process present Skin: COMMON NORMALS: no rashes or lesions noted, no wounds and turgor normal GENERAL SKIN EXAM: no rashes or lesions noted and turgor normal Course Vital Signs: Vital signs: Vital Signs Temperature 97.9 F 10/14/24 19:06 Pulse Rate 85 10/14/24 20:25 Respiratory Rate 16 10/14/24 20:25 Blood Pressure 136/78 10/14/24 20:25 Pulse Oximetry 95 10/14/24 20:25 Oxygen Delivery Me thod Nasal Cannula 10/14/24 20:25 Oxygen Flow Rate 2 10/14/24 20:25 MDM - Back Pain/Injury Medical Decision Making Patient evaluated in the emergency department initially for acute postop pain. Patient is status post laminectomy and facetectomy. Here in the emergency department he underwent CT imaging to assess for postop hematoma but also obtained laboratory studies and a chest x-ray. Patient's pain was treated with Decadron, Valium, Dilaudid. He had good improvement in his symptoms. His pain started to worsen we gave him additional pain meds. He does have a slight leukocytosis but he has a history of CLL and he is postop. His white blood cells are at baseline. His CMP revealed no significant electrolyte abnormality but he does have an elevated bilirubin. Chest x-ray reveals right perihilar consolidation concerning for pneumonia he was treated with doxycycline and Augmentin. Patient CT results had not resulted. He was no longer interested in waiting for the results. He is going to call back for results. His oxygen saturation at rest was between 90 and 94 on room air. I wanted to have RT come and ambulate the patient to assess for home oxygen needs but patient has declined. He states he is ready to go home and he is going to go home. Patient understands that he is leaving without complete results and without full evaluation of his oxygenation status. He has been instructed to return to the emergency department for new, concerning, worsening symptoms. He has been instructed to follow-up with his surgeon of record. Labs 10/14/24 19:06 10/14/24 19:06 Radiology Impressions Chest X-Ray 10/14/24 19:38 IMPRESSION: Right perihilar consolidation concerning for pneumonia. Laboratory Results WBC 12.93 10^3/uL (3.29-11.43) H 10/14/24 19:06 RBC 5.29 10^6/uL (3.85-5.65) 10/14/24 19:06 Hgb 15.10 g/dL (11.27-16.99) 10/14/24 19:06 Hct 45.1 % (37-53) 10/14/24 19:06 MCV 85.3 fl (82-101) 10/14/24 19:06 MCH 28.5 pg (27-33) 10/14/24 19:06 MCHC 33.5 g/dL (30-55) 10/14/24 19:06 RDW 14.3 % (12.1-15.1) 10/14/24 19:06 Plt Count 188 10^3/cmm (157-399) 10/14/24 19:06 MPV 12.2 fL (7.4-10.4) H 10/14/24 19:06 Neut % (Auto) 56.5 % 10/14/24 19:06 Lymph % (Auto) 32.4 % 10/14/24 19:06 Jefferson % (Auto) 8.8 % 10/14/24 19:06 Eos % (Auto) 1.1 % 10/14/24 19:06 Baso % (Auto) 0.4 % 10/14/24 19:06 Neut # (Auto) 7.31 10^3/uL (1.8-7.7) 10/14/24 19:06 Lymph # (Auto) 4.2 10^3/uL (0.8-4.8) 10/14/24 19:06 Jefferson # (Auto) 1.1 10^3/uL (0.2-0.9) H 10/14/24 19:06 Eos # (Auto) 0.1 10^3/uL (0.0-0.8) 10/14/24 19:06 Baso # (Auto) 0.1 10^3/uL (0.0-0.1) 10/14/24 19:06 Nucleated RBC % (auto) 0 % 10/14/24 19:06 Nucleated RBCs # 0.0 /100WBC 10/14/24 19:06 Sodium 139 mmol/L (136-145) 10/14/24 19:06 Potassium 3.8 mmol/L (3.5-5.1) 10/14/24 19:06 Chloride 102 mmol/L (98-107) 10/14/24 19:06 Carbon Dioxide 24 mmol/L (22-29) 10/14/24 19:06 Anion Gap 16.8 (5-19) 10/14/24 19:06 BUN 17 mg/dL (8-23) 10/14/24 19:06 Creatinine 0.9 mg/dL (0.7-1.2) 10/14/24 19:06 GFR Calculation 84.7 mL/min (90-130) L 10/14/24 19:06 Glucose 94 mg/dL (65-115) 10/14/24 19:06 Calculated Osmolality 289 mOsm/kg (285-295) 10/14/24 19:06 Calcium 9.0 mg/dL (8.5-10.5) 10/14/24 19:06 Total Bilirubin 2.1 mg/dL (0.15-1.2) H 10/14/24 19:06 AST 20 U/L (0-40) 10/14/24 19:06 ALT 22 U/L (0-41) 10/14/24 19:06 Alkaline Phosphatase 91 U/L (40-130) 10/14/24 19:06 Total Protein 7.1 g/dL (6.6-8.7) 10/14/24 19:06 Albumin 4.2 g/dL (3.5-5.2) 10/14/24 19:06 Globulin 2.9 g/dL (1.3-4.6) 10/14/24 19:06 XR interpretation done by ED provider, pending radiology final review Discharge Plan Discharge Patient Disposition: Home Clinical Impression: History of lumbar surgery, Pneumonia, Hyperbilirubinemia, Acute postoperative pain Condition: Stable Prescriptions: New methocarbamol 500 mg tablet 1,000 mg PO Q6H PRN (Reason: muscle spasm) Qty: 30 0RF doxycycline hyclate 100 mg tablet 100 mg PO BID 7 Days Qty: 14 0RF amoxicillin-pot clavulanate 875-125 mg tablet 1 tab PO BID 7 Days Qty: 14 0RF methylprednisolone [Medrol (Jayce)] 4 mg tablets,dose pack See Rx Instructions .ROUTE .COMPLEX Qty: 21 0RF Rx Instructions: for 6 days No Action allopurinol 300 mg tablet 300 mg PO DAILY albuterol sulfate 90 mcg/actuation HFA aerosol inhaler 2 puff inhalation Q6H PRN (Reason: Shortness Of Breath) cholecalciferol (vitamin D3) 325 mcg (13,000 unit) capsule 325 mcg PO DAILY nitroglycerin [Nitrostat] 0.4 mg tablet, sublingual 0.4 mg sublingual Q5M PRN (Reason: chest pain) Qty: 25 3RF Rx Instructions: do not exceed 3 doses per episode magnesium 200 mg tablet 200 mg PO DAILY Imbruvica 280 mg tablet 280 mg PO DAILY mecobalamin (vitamin B12) 2,500 mcg tablet,chewable 2,500 mcg PO DAILY apple cider vinegar 300 mg tablet 300 mg PO DAILY losartan 50 mg tablet 50 mg PO DAILY Qty: 90 3RF aspirin [Adult Aspirin Regimen] 81 mg tablet,delayed release (DR/EC) 81 mg PO DAILY Qty: 90 3RF amlodipine 10 mg tablet 10 mg PO DAILY Qty: 90 3RF (DME) pen needle, diabetic [Comfort EZ Pen [place]] 32 gauge x 5/16 needle See Rx Instructions .Route Qty: 100 12RF Rx Instructions: As directed up to 4 times daily clopidogrel [Plavix] 75 mg tablet 75 mg PO DAILY Qty: 90 3RF atorvastatin 40 mg tablet 40 mg PO DAILY Qty: 90 3RF hydrochlorothiazide 12.5 mg tablet 12.5 mg PO DAILY Qty: 90 3RF potassium chloride 10 mEq tablet extended release 10 meq PO DAILY Qty: 90 3RF (DME) Omnipod 5 G6-G7 Intro Kt(Gen5) Cartridge See Rx Instructions .Route Qty: 1 0RF Rx Instructions: As directed (DME) Omnipod 5 G6-G7 Pods (Gen 5) Cartridge See Rx Instructions .Route Qty: 5 2RF Rx Instructions: Change pod every 3 days metoprolol tartrate 25 mg tablet 25 mg PO BID Qty: 90 3RF cinnamon bark 500 mg Capsule 500 mg PO DAILY tramadol 50 mg tablet 50 mg PO BID insulin aspart U-100 [Novolog FlexPen U-100 Insulin] 100 unit/mL (3 mL) insulin pen 50 unit SUBCUT TID insulin glargine [Lantus Solostar U-100 Insulin] 100 unit/mL (3 mL) insulin pen 80 unit SUBCUT DAILY Jardiance 25 mg tablet 25 mg PO DAILY oxycodone 5 mg tablet 5 mg PO Q4H PRN (Reason: pain) 7 Days Qty: 42 0RF Discharge Orders: Discharge ED (Routine); Ordered 10/14/24 Ordered By: Ye Whitt Referrals: Lucía Vegas FNP [Primary Care Provider] - Patient Instructions: Pneumonia (ED), Opioid Safety, Pain Management Activity Restrictions/Additional Instructions: You have been provided rx for pneumonia. Augmentin and Doxycycline You have also been provided a steroid pack and a muscle relaxer for your back pain. Please follow up with surgeon as previously discussed. You are leaving prior to CT results being completed. you will need to call for results. Please return to the ER for new, concering, or worriesome symptoms Print Language: Belarusian Coding Level of Care Code ED Microcomputer Technician for Amy Mayer
[2024-10-14] MEDS: diazePAM 5 mg Tablet PO (19:15)
[2024-10-14] MEDS: ketorolac 30 mg/mL INJ 15 MG IVP (19:15)
[2024-10-14] MEDS: dexamethasone 10 mg/mL INJ IVP (19:15)
[2024-10-14 19:20] VITALS: BP 152/109; PULSE 84; RESP 16; O2SAT 93
--- NOTE | 2024-10-14 19:38 | XRR_ITS ---
PROCEDURE INFORMATION: Exam: XR Chest Exam date and time: 10/14/2024 8:05 PM Age: 64 years old Clinical indication: Post op lumbar fusion x 5 days ago; New onset fever/weakness TECHNIQUE: Imaging protocol: Radiologic exam of the chest. Views: 1 view. COMPARISON: CT angio chest PE protcl [id number] 08/21/2024 12:47 PM FINDINGS: Lungs: Right perihilar consolidation. Pleural spaces: No pleural effusion. No pneumothorax. Heart/Mediastinum: Cardiomegaly. Bones/joints: Median sternotomy with breakage of the 3rd superior most wire, unchanged. XR/XR chest 1V portable [id number] IMPRESSION: Right perihilar consolidation concerning for pneumonia.
[2024-10-14 19:43] LABS: Basophils # 0.1 10^3/uL (0.0-0.1); Basophils % 0.4 %; Eosinophils # 0.1 10^3/uL (0.0-0.8); Eosinophils % 1.1 %; Hematocrit 45.1 % (37-53); Lymphocytes # 4.2 10^3/uL (0.8-4.8); Lymphocytes % 32.4 %; Mean Corpuscular HGB Conc 33.5 g/dL (30-55); Mean Corpuscular Hemoglobin 28.5 pg (27-33); Mean Corpuscular Volume 85.3 fl (82-101); Mean Platelet Volume 12.2 fL (7.4-10.4); Monocytes # 1.1 10^3/uL (0.2-0.9); Monocytes % 8.8 %; Neutrophils # 7.31 10^3/uL (1.8-7.7); Neutrophils % 56.5 %; Nucleated Red Blood Cells % 0 %; Platelet Count 188 10^3/cmm (157-399); Red Blood Count 5.29 10^6/uL (3.85-5.65); Red Cell Distribution Width 14.3 % (12.1-15.1); White Blood Count 12.93 10^3/uL (3.29-11.43)
[2024-10-14 19:58] LABS: Alanine Aminotransferase 22 U/L (0-41); Albumin Level 4.2 g/dL (3.5-5.2); Alkaline Phosphatase 91 U/L (40-130); Anion Gap 16.8 (5-19); Aspartate Amino Transferase 20 U/L (0-40); Blood Urea Nitrogen 17 mg/dL (8-23); Carbon Dioxide 24 mmol/L (22-29); Chloride 102 mmol/L (98-107); Creatinine Clr Calc Pharmacy 98.4907; Globulin 2.9 g/dL (1.3-4.6); Glomerular Filtration Rate 84.7 mL/min (90-130); Glucose 94 mg/dL (65-115); Osmolality Calculated 289 mOsm/kg (285-295); Potassium 3.8 mmol/L (3.5-5.1); Sodium 139 mmol/L (136-145); Total Bilirubin 2.1 mg/dL (0.15-1.2); Total Protein 7.1 g/dL (6.6-8.7)
[2024-10-14 20:25] VITALS: BP 136/78; PULSE 85; RESP 16; O2SAT 95
[2024-10-14] MEDS: methocarbamol 500 mg Tablet 1000 MG PO (22:13)
[2024-10-14] MEDS: doxycycline 100 mg Tablet PO (22:13)
[2024-10-14] MEDS: HYDROmorphone 0.5 MG/0.5 ML INJ IVP (22:14)
[2024-10-14] MEDS: amoxicillin-clav 875-125 mg Tablet 1 TAB PO (22:14)
[2024-10-14 22:35] VITALS: BP 137/76; PULSE 82; RESP 18; TEMP 36.6; O2SAT 96
== END 2024-10-14 22:30 | disposition home or self-care (01) ==
PROVIDERS: Emergency Provider Nurse Practitioner; PCP Registered Nurse
DX: J18.9 Pneumonia, unspecified organism (principal); E80.6 Other disorders of bilirubin metabolism; G89.18 Other acute postprocedural pain; Z98.890 Other specified postprocedural states; Z79.02 Long term (current) use of antithrombotics/antiplatelets; Z79.4 Long term (current) use of insulin; Z85.828 Personal history of other malignant neoplasm of skin; E11.9 Type 2 diabetes mellitus without complications; Z85.47 Personal history of malignant neoplasm of testis; I25.10 Atherosclerotic heart disease of native coronary artery without angina pectoris; E78.5 Hyperlipidemia, unspecified; I10 Essential (primary) hypertension
CPT/HCPCS: 71045; 72131; 80053; 85025; 96374; 96375; 99285; J1100; J1171; J1885; J9999

== ENCOUNTER → 2024-10-17 13:29 | Outpatient (BNVA) | payer MEDICARE, BC, SELFPAY | PROVIDERS: PCP Registered Nurse; Visit Provider Orthopaedic Surgery | DX: Z98.890 Other specified postprocedural states (principal) | CPT/HCPCS: 99024 ==

== ENCOUNTER → 2024-11-21 12:44 | Outpatient (BNVA) | payer MEDICARE, BC, SELFPAY | PROVIDERS: PCP Registered Nurse; Visit Provider Orthopaedic Surgery | DX: Z98.890 Other specified postprocedural states (principal) | CPT/HCPCS: 99024 ==

== ENCOUNTER 2024-12-27 10:52 | Outpatient (CLI) | payer MEDICARE, BC, SELFPAY ==
[2024-12-27 12:04] LABS: Alanine Aminotransferase 33 U/L (0-41); Albumin Level 4.3 g/dL (3.5-5.2); Alkaline Phosphatase 115 U/L (40-130); Anion Gap 15.7 (5-19); Aspartate Amino Transferase 37 U/L (0-40); Blood Urea Nitrogen 16 mg/dL (8-23); Carbon Dioxide 24 mmol/L (22-29); Chloride 104 mmol/L (98-107); Chol HDL Ratio 3.13 mg/dL (1.0-5.00); Cholesterol 97 mg/dL (0-200); Globulin 3.2 g/dL (1.3-4.6); Glomerular Filtration Rate 84.7 mL/min (90-130); Glucose 80 mg/dL (65-115); HDL Cholesterol 31 mg/dL (60-100); LDL Cholesterol Calculated 32 mg/dL (50-129); LDL HDL Ratio 1.03 RATIO (0.00-3.22); Osmolality Calculated 290 mOsm/kg (285-295); Potassium 3.7 mmol/L (3.5-5.1); Sodium 140 mmol/L (136-145); Total Bilirubin 1.9 mg/dL (0.15-1.2); Total Protein 7.5 g/dL (6.6-8.7); Triglycerides 170 mg/dL (0-150)
[2024-12-27 12:08] LABS: Creatinine Urine, Random 71 mg/dL (39-259); Microalbum Creatinine Ratio Ur 28 mg/dL (0-20); Microalbumin Random Urine 2 ug/dL (0-20)
== END 2024-12-27 10:53 | disposition home or self-care (01) ==
PROVIDERS: PCP Registered Nurse; Visit Provider Internal Medicine
DX: E11.9 Type 2 diabetes mellitus without complications (principal); E78.2 Mixed hyperlipidemia; I25.10 Atherosclerotic heart disease of native coronary artery without angina pectoris
CPT/HCPCS: 36415; 80053; 80061; 82044

== ENCOUNTER → 2025-01-02 10:14 | Outpatient (BNVA) | payer MEDICARE, BC, SELFPAY | PROVIDERS: PCP Registered Nurse; Visit Provider Internal Medicine | DX: Z98.890 Other specified postprocedural states (principal); E11.9 Type 2 diabetes mellitus without complications; E78.2 Mixed hyperlipidemia; I25.10 Atherosclerotic heart disease of native coronary artery without angina pectoris | CPT/HCPCS: 99024; 99214 ==

== ENCOUNTER → 2025-02-06 10:03 | Outpatient (BNVA) | payer MEDICARE, BC, SELFPAY | PROVIDERS: PCP Registered Nurse; Visit Provider Internal Medicine | DX: E11.69 Type 2 diabetes mellitus with other specified complication (principal); E78.2 Mixed hyperlipidemia; I25.10 Atherosclerotic heart disease of native coronary artery without angina pectoris; Z79.4 Long term (current) use of insulin | CPT/HCPCS: 99214 ==

== ENCOUNTER → 2025-03-13 12:41 | Outpatient (BNVA) | payer MEDICARE, BC, SELFPAY | PROVIDERS: PCP Registered Nurse; Visit Provider Internal Medicine Cardiovascular Disease | DX: I25.10 Atherosclerotic heart disease of native coronary artery without angina pectoris (principal); I10 Essential (primary) hypertension; E78.5 Hyperlipidemia, unspecified; Z79.02 Long term (current) use of antithrombotics/antiplatelets; Z79.82 Long term (current) use of aspirin; Z95.1 Presence of aortocoronary bypass graft; I25.2 Old myocardial infarction | CPT/HCPCS: 99214 ==

== ENCOUNTER 2025-05-02 09:04 | Outpatient (CLI) | payer MEDICARE, BC, SELFPAY ==
[2025-05-02 10:31] LABS: Alanine Aminotransferase 20 U/L (0-41); Albumin Level 4.4 g/dL (3.5-5.2); Alkaline Phosphatase 98 U/L (40-130); Anion Gap 16.6 (5-19); Aspartate Amino Transferase 26 U/L (0-40); Blood Urea Nitrogen 18 mg/dL (8-23); Calcium 9.4 mg/dL (8.5-10.5); Carbon Dioxide 26 mmol/L (22-29); Chloride 103 mmol/L (98-107); Cholesterol 91 mg/dL (0-200); Globulin 3.0 g/dL (1.3-4.6); Glucose 150 mg/dL (65-115); HDL Cholesterol 34 mg/dL (60-100); Osmolality Calculated 299 mOsm/kg (285-295); Potassium 3.6 mmol/L (3.5-5.1); Sodium 142 mmol/L (136-145); Total Protein 7.4 g/dL (6.6-8.7); Triglycerides 137 mg/dL (0-150)
[2025-05-02 10:32] LABS: Estmated Average Glucose 157; Hemoglobin A1C 7.1 % (4.0-6.0)
[2025-05-02 10:45] LABS: Creatinine Urine, Random 44 mg/dL (39-259); Microalbum Creatinine Ratio Ur 23 mg/dL (0-20)
== END 2025-05-02 09:05 | disposition home or self-care (01) ==
LOC: LAB 09:07
PROVIDERS: PCP Registered Nurse; Visit Provider Internal Medicine
DX: I25.10 Atherosclerotic heart disease of native coronary artery without angina pectoris (principal); E78.2 Mixed hyperlipidemia; E11.9 Type 2 diabetes mellitus without complications
CPT/HCPCS: 36415; 80053; 80061; 82044; 83036

== ENCOUNTER → 2025-05-07 10:24 | Outpatient (BNVA) | payer MEDICARE, BC, SELFPAY | PROVIDERS: PCP Registered Nurse; Visit Provider Internal Medicine | DX: E11.9 Type 2 diabetes mellitus without complications (principal); E78.2 Mixed hyperlipidemia; I25.10 Atherosclerotic heart disease of native coronary artery without angina pectoris; Z79.84 Long term (current) use of oral hypoglycemic drugs | CPT/HCPCS: 99214 ==

== ENCOUNTER → 2025-05-08 15:43 | Outpatient (BNVA) | payer MEDICARE, BC, SELFPAY | PROVIDERS: PCP Registered Nurse; Visit Provider Orthopaedic Surgery | DX: M48.062 Spinal stenosis, lumbar region with neurogenic claudication (principal); Z98.890 Other specified postprocedural states | CPT/HCPCS: 72100; 99213 ==

== ENCOUNTER 2025-05-25 08:34 | Outpatient (CLI) | payer MEDICARE, BC, SELFPAY ==
--- NOTE | 2025-05-25 08:45 | MR_ITS ---
WS: [id number] MRI LUMBAR SPINE NONCONTRAST HISTORY: Multiple prior surgeries. Back pain. Muscle spasms. COMPARISON: 07/06/2024 TECHNIQUE: Sagittal and axial multisequence imaging is submitted. Prior posterior lumbar fusion at L5-S1 with interbody spacer. No complications are evident. Mild straightening of the normal lumbar lordosis. Small amount of reactive marrow edema in the adjacent endplates of L1 and L2. Mild disc desiccation at L1-2. Conus terminates normally at L1-2 disc level. L1-L2: Moderate size disc protrusion slightly asymmetric to the RIGHT. This disc protrusion was present on 07/06/2024 but has slightly decreased in size. Disc protrusion extends just slightly above and below the disc level. There is slight mass effect upon the thecal sac and narrowing of the RIGHT subarticular recess. Less central and RIGHT subarticular recess stenosis as compared to the prior study. Additional mild osteophytic ridging. Additional far lateral RIGHT foraminal disc protrusion. Osteophytic ridging around the vertebral bodies. RIGHT hemilaminectomy defect. Moderate bilateral foraminal stenosis. L2-L3: Mild diffuse annular disc bulging with marked ligamentum flavum and facet arthritis. Minimal subarticular recess stenosis. No significant foraminal stenosis. L3-L4: Diffuse annular disc bulging with central disc protrusions. Large posterior laminectomy defect. There is facet joint arthritis and ligamentum flavum hypertrophy encroaching upon the thecal sac. Fluid in the facet joints. Severe central and bilateral subarticular recess and moderate foraminal komal nosis. Small complex fluid collection measuring 1.5 x 1.7 cm in the RIGHT posterior laminectomy tract. L4-L5: No central stenosis. Mild RIGHT and moderate to severe LEFT foraminal stenosis. L5-S1: Mild osteophytic ridging with ligamentum flavum and facet arthritis. Mild bilateral subarticular recess stenosis with mild contact on the S1 nerve roots, similar to the prior study. Mild foraminal stenosis. Parapelvic renal cysts. MR/MR lumbar spine wo con* [id number] IMPRESSION: 1. Prior RIGHT hemilaminectomy defects at L1-2 and L3-4. Posterior fusion at L 4-5. 2. Moderate size central disc protrusion at L1-2 has slightly decreased in siz e since 07/05/2024. Mild improvement in the central and subarticular recess sten osis. 3. Far lateral RIGHT foraminal disc protrusion at L1-2 is unchanged. Moderate bilateral foraminal stenosis is also stable. 4. L3-4: Central disc protrusions and a large posterior laminectomy defect. Se stephanie central and bilateral subarticular recess and foraminal stenosis. 5. Small complex fluid collection measuring 1.5 x 1.7 in the RIGHT posterior l aminectomy defect at L3-4. Probably a small postoperative seroma or resolving h ematoma. Abscess may appear similar. 6. Moderate to severe LEFT foraminal stenosis and mild RIGHT at L4-5 is unchan ged. 7. Mild subarticular recess stenosis with mild disc contact on the S1 nerve ro ots. Mild foraminal stenosis.
== END 2025-05-25 08:35 | disposition home or self-care (01) ==
LOC: RAD 08:35
PROVIDERS: PCP Registered Nurse; Visit Provider Orthopaedic Surgery
DX: M48.062 Spinal stenosis, lumbar region with neurogenic claudication (principal); M51.26 Other intervertebral disc displacement, lumbar region; M47.896 Other spondylosis, lumbar region; Z98.890 Other specified postprocedural states
CPT/HCPCS: 72148

== ENCOUNTER → 2025-06-12 14:33 | Outpatient (BNVA) | payer MEDICARE, BC, SELFPAY | PROVIDERS: PCP Registered Nurse; Visit Provider Orthopaedic Surgery | DX: M51.362 Other intervertebral disc degeneration, lumbar region with discogenic back pain and lower extremity pain (principal) | CPT/HCPCS: 99213 ==

== ENCOUNTER → 2025-07-24 10:02 | Outpatient (BNVA) | payer MEDICARE, BC, SELFPAY | PROVIDERS: PCP Registered Nurse; Visit Provider Podiatrist Foot & Ankle Surgery | DX: L60.0 Ingrowing nail (principal); E11.9 Type 2 diabetes mellitus without complications; Z79.4 Long term (current) use of insulin | CPT/HCPCS: 11730; 99204; J9999 ==